=== PATIENT | female | born 1970 | race Asian ===

== ENCOUNTER 2021-10-09 03:43 | Emergency (ER) | payer BC ==
[2021-10-09] MEDS ORDERED: BENZONATATE 100 MG CAPSULE PO STA (04:06)
[2021-10-09 05:05] LABS: CORONAVIRUS 229E-RESP PCR NOT DETECTED; CORONAVIRUS HKU1-RESP PCR NOT DETECTED; CORONAVIRUS NL63-RESP PCR NOT DETECTED; CORONAVIRUS OC43-RESP PCR NOT DETECTED
[2021-10-09 05:06] LABS: B. PARAPERTUSSIS- RESP PCR PAN NOT DETECTED; B. PERTUSSIS- RESP PCR PANEL NOT DETECTED; C. PNEUMONIAE- RESP PCR PANEL NOT DETECTED; HUMAN METAPNEUMOVIRUS NOT DETECTED; INFLUENZA A- RESP PCR PANEL NOT DETECTED; INFLUENZA B - RESP PCR PANEL NOT DETECTED; M. PNEUMONIAE- RESP PCR PANEL NOT DETECTED; PARAINFLUENZA VIRUS 1 NOT DETECTED; PARAINFLUENZA VIRUS 2 NOT DETECTED; PARAINFLUENZA VIRUS 3 NOT DETECTED; PARAINFLUENZA VIRUS 4 NOT DETECTED; RHINOVIRUS/ENTEROVIRUS NOT DETECTED; RSV- RESP PCR PANEL NOT DETECTED; SARS-CoV-2 -RESP PCR PANEL DETECTED
[2021-10-09] MEDS ORDERED: AZITHROMYCIN 250 MG TABLET PO STA (05:19)
--- NOTE | 2021-10-09 06:13 | ED Physician Documentation ---
PD HPI URI - Stated complaint Stated Complaint: COUGH - Chief complaint Chief Complaint: Resp - History obtained from History obtained from: Patient - Additional information Additional information: Patient is 51-year-old female presenting with 4-day history of cough and generalized malaise. Denies chest pain or shortness of breath. Has not received flu shot or vaccination for the novel coronavirus. Does report one sick contact at home, reports son who is a school-aged had similar symptoms a few days ago but is now doing quite well. Denies any fever, chest pain, abdominal pain, nausea, vomiting, diarrhea, constipation. Review of Systems Ten Systems: 10 systems reviewed and negative Constitutional: reports: Myalgias. denies: Fever Cardiac: denies: Chest pain / pressure, Palpitations Respiratory: reports: Cough. denies: Dyspnea, Hemoptysis GI: denies: Abdominal Pain, Nausea, Vomiting : denies: Dysuria PD PAST MEDICAL HISTORY - Past Medical History Past Medical History: No Cardiovascular: None Respiratory: None Neuro: None Endocrine/Autoimmune: None GI: None MAMMOGRAPHY TECHNICIAN: None : None HEENT: None Psych: None Musculoskeletal: None Derm: None - Past Surgical History Past Surgical History: Yes /MAMMOGRAPHY TECHNICIAN: Tubal ligation - Present Medications Home Medications: Ambulatory Orders Medication Instructions Recorded Confirmed Azithromycin [Zithromax] 250 mg PO DAILY #4 tablet 10/09/21 Benzonatate [Tessalon] 200 mg PO TID PRN #30 cap 10/09/21 Codeine Phosphate/Guaifenesin 5 ml PO Q6HR #100 ml 10/09/21 [Guaifen-Codeine 100-10 mg/5 ml] - Allergies Allergies/Adverse Reactions: Allergies Allergy/AdvReac Type Severity Reaction Status Date / Time No Known Drug Allergies Allergy Verified 10/09/21 03:56 - Social History Does the pt smoke?: No Smoking Status: Never smoker Does the pt drink ETOH?: No Does the pt have substance abuse?: No - Immunizations Immunizations are current?: Yes - POLST Patient has POLST: No PD ED PE NORMAL - Vitals Vital signs reviewed: Yes - General General: Alert and oriented X 3 - HEENT HEENT: Atraumatic, Pharynx benign - Neck Neck: Supple, no meningeal sign, No JVD - Cardiac Cardiac: RRR, No murmur - Respiratory Respiratory: No respiratory distress - Abdomen Abdomen: Normal bowel sounds, Soft, Non tender, Non distended, Other (Positive for nonproductive cough) - Derm Derm: Normal color, No rash Results - Vitals Vitals: Vital Signs - 24 hr 10/09/21 10/09/21 10/09/21 03:53 04:11 04:18 Temperature 36.4 C L Heart Rate 98 Respiratory 17 16 15 Rate Blood Pressure 121/73 O2 Saturation 95 Oxygen O2 Source Room air - Labs Labs: Laboratory Tests 10/09/21 04:08 Nasal Adenovirus (PCR) NOT DETECTED Nasal B. parapertussis DNA (PCR) NOT DETECTED Nasal Coronavir 229E PCR NOT DETECTED Nasal Coronavir HKU1 PCR NOT DETECTED Nasal Coronavir NL63 PCR NOT DETECTED Nasal Coronavir OC43 PCR NOT DETECTED Nasal Enterovir/Rhinovir PCR NOT DETECTED Nasal Influenza B PCR NOT DETECTED Nasal Influenza A PCR NOT DETECTED Nasal Parainfluen 1 PCR NOT DETECTED Nasal Parainfluen 2 PCR NOT DETECTED Nasal Parainfluen 3 PCR NOT DETECTED Nasal Parainfluen 4 PCR NOT DETECTED Nasal RSV (PCR) NOT DETECTED Nasal B.pertussis DNA PCR NOT DETECTED Nasal C.pneumoniae (PCR) NOT DETECTED Jroden Human Metapneumo PCR NOT DETECTED Nasal M.pneumoniae (PCR) NOT DETECTED Nasal SARS-CoV-2 (PCR) DETECTED A - Rads (name of study) 0355 Radiology: Prelim report reviewed (Impression: Multifocal groundglass opacity distributed throughout the lung parenchyma. This finding can represent multi lobar viral pneumonia in the appropriate clinical setting) PD MEDICAL DECISION MAKING - ED course Complexity details: reviewed results, re-evaluated patient, considered differential, d/w patient, other (Discussed risks and benefits of monoclonal antibody therapy) ED course: Patient is 51-year-old female presenting to the emergency department for 4 days cough, general myalgias and other symptoms consistent with viral infection. Afebrile, hemodynamically stable on arrival to the emergency department. Respirating well on room air. Did obtain a respiratory viral panel which was positive for the novel coronavirus. Additionally patient's chest x-ray demonstrated bibasilar groundglass opacities consistent with Covid pneumonia. Patient was reevaluated multiple times and found to be resting comfortably and in no acute distress. She is given Tessalon and a first dose of azithromycin in the emergency department. I had a long and detailed conversation with the patient about the available monoclonal antibody therapy. She would be eligible for this given her BMI greater than 25 however she has minimal other risk factors. After discussing this therapy with her and providing her with the onsite information packet she elected to decline this therapy at this time. I will at this time discharge her with an ongoing course of azithromycin as well as medication for symptomatic management. I clearly outlined current CDC recommendations for quarantining at home and to the conditions at which point she can leave quarantine. She was otherwise strongly encouraged to follow-up carefully with primary care or return to the emergency department for new or worsening symptoms. Departure - Departure Disposition: Home, Self Care Clinical Impression: COVID-19 Condition: Fair Instructions: COVID-19 [facility], COVID-19 [facility] Department Statement Prescriptions: Codeine Phosphate/Guaifenesin [Guaifen-Codeine 100-10 mg/5 ml] 5 ml PO Q6HR #100 ml Benzonatate [Tessalon] 200 mg PO TID PRN #30 cap PRN Reason: Cough Azithromycin [Zithromax] 250 mg PO DAILY #4 tablet Comments: Thank you for allowing us to care for you today at [facility] Today in the emergency department you were diagnosed with the novel coronavirus. I would like you to begin a short course of an oral antibiotic. This medication is used to decrease your risk for a superimposed or worsening bacterial pneumonia. I will also be sending some medication to your local pharmacy to help with your cough and other symptoms. Please stay well-hydrated at home. Please complaining of rest. Please follow-up with your primary care doctor soon as you are able in order to make an appointment for medical recheck. It is important that you remain in quarantine a minimum of 10 days after the onset of your symptoms. If at that time all of your symptoms are improving and you have been fever free for greater than 24 hours you can resume appropriate socially distanced activity. If it anytime you develop any new or worsening symptoms including worsening shortness of breath, cough, chest pain, chest pressure or if for any other reason you feel you should please do not hesitate to return to the emergency department.
[2021-10-09 06:37] VITALS: BP 109/78
--- NOTE | 2021-10-09 07:23 | XRAY Report ---
PROCEDURE: Chest 1 View X-Ray INDICATIONS: chest pain TECHNIQUE: One view of the chest was acquired. COMPARISON: None. FINDINGS: Surgical changes and devices: None. Lungs and pleura: No pleural effusions or pneumothorax. Diffusely scattered patchy ground glass opac ities seen throughout the bilateral hemithoraces. Findings are slightly more pronounced in the lower lung zones. No focal consolidations. Mediastinum: Mediastinal contours appear normal. Heart size is normal. Bones and chest wall: No suspicious bony lesions. Overlying soft tissues appear unremarkable. IMPRESSION: Multifocal groundglass opacities scattered throughout the bilateral hemithoraces. Findings are most l ikely related to multifocal pneumonia secondary to viral or atypical organism. Recommend follow-up im aging 4-6 weeks after treatment to document resolution of findings. No significant discrepancy with initial interpretation by overnight radiologist. Reviewed by: Jose Rafael Prado MD on 10/09/2021 7:21 AM PST Approved by: Jose Rafael Prado MD on 10/09/2021 7:21 AM PST Station ID: [id number]
== END 2021-10-09 06:38 | disposition home or self-care (01) ==
LOC: ED 03:43
DX: U07.1 COVID-19 (principal); J12.82 Pneumonia due to coronavirus disease 2019
CPT/HCPCS: 0202U; 71045; 99284; A9270

== ENCOUNTER 2022-06-24 11:49 | Outpatient (CLI) | payer BC ==
[2022-06-24 17:41] LABS: BASOPHILS # (AUTO) 0.1 10^3/uL (0.0-0.1); BASOPHILS % (AUTO) 1.1 %; EOSINOPHILS # (AUTO) 0.4 10^3/uL (0.0-0.7); EOSINOPHILS % (AUTO) 4.2 %; HCT - HEMATOCRIT 42.3 % (37.0-47.0); HGB - HEMOGLOBIN 13.3 g/dL (12.0-16.0); LYMPHOCYTES # (AUTO) 2.3 10^3/uL (1.5-3.5); LYMPHOCYTES % (AUTO) 26.7 %; MEAN CORPUSCULAR HEMOGLOBIN 24.6 pg (27.0-31.0); MEAN CORPUSCULAR HGB CONC 31.4 g/dL (32.0-36.0); MEAN CORPUSCULAR VOLUME 78.2 fL (81.0-99.0); MEAN PLATELET VOLUME 8.4 fL (7.9-10.8); MONOCYTES # (AUTO) 0.4 10^3/uL (0.0-1.0); MONOCYTES % (AUTO) 5.1 %; NEUTROPHILS # (AUTO) 5.3 10^3/uL (1.5-6.6); NEUTROPHILS % (AUTO) 62.4 %; PLT - PLATELET COUNT 358 10^3/uL (130-450); RED BLOOD COUNT 5.41 10^6/uL (4.20-5.40); RED CELL DISTRIBUTION WIDTH 13.8 % (12.0-15.0); WHITE BLOOD COUNT 8.5 x10^3/uL (4.8-10.8)
[2022-06-24 17:56] LABS: ALBUMIN 3.9 g/dL (3.2-5.5); ALBUMIN/GLOBULIN RATIO 0.9 (1.0-2.2); ALKALINE PHOSPHATASE 109 IU/L (42-121); ALT ALANINE AMINOTRANSFERASE 18 IU/L (10-60); AST ASPARTATE AMINOTRANSFERASE 21 IU/L (10-42); BILIRUBIN,TOTAL 0.4 mg/dL (0.2-1.0); BUN - BLOOD UREA NITROGEN 11 mg/dL (6-20); CALCIUM 9.1 mg/dL (8.5-10.3); CARBON DIOXIDE - CO2 29 mmol/L (21-32); CHLORIDE 101 mmol/L (101-111); CHOL/HDL RATIO 3.1 (<4.4); CHOLESTEROL 149 mg/dL; CREATININE 0.9 mg/dL (0.4-1.0); GFR - MDRD 65 (>89); GLUCOSE 94 mg/dL (70-100); HDL CHOLESTEROL 48 mg/dL; LDL CHOLESTEROL,CALCULATED 79 mg/dL; LDL/HDL RATIO 1.6 (<4.4); POTASSIUM 4.1 mmol/L (3.5-5.0); SODIUM 136 mmol/L (135-145); TOTAL PROTEIN 8.1 g/dL (6.7-8.2); TRIGLYCERIDES 108 mg/dL; VLDL CHOLESTEROL 22 mg/dL
[2022-06-24 18:06] LABS: THYROID STIMULATING HORMONE 1.37 uIU/mL (0.34-5.60)
[2022-06-24 18:33] LABS: CRP - C-REACTIVE PROTEIN < 1.0 mg/dL (0-1.0)
[2022-06-24 20:49] LABS: ESTIMATED AVERAGE GLUCOSE 114 mg/dL (70-100); HEMOGLOBIN A1c% 5.6 % (4.27-6.07)
== END 2022-06-24 11:50 | disposition home or self-care (01) ==
LOC: LAB.N 11:49
PROVIDERS: ATTEND Nurse Practitioner
DX: L30.9 Dermatitis, unspecified (principal); Z13.220 Encounter for screening for lipoid disorders; E66.9 Obesity, unspecified; R53.83 Other fatigue
CPT/HCPCS: 36415; 80053; 80061; 83036; 83721; 84443; 85025; 85651; 86140

== ENCOUNTER 2025-10-12 02:13 | Inpatient (IN) ==
--- OUTSIDE RECORDS SUMMARY | 2025-10-12 02:37 | EXTERNAL MEDICAL SUMMARY RPT | Continuity of Care Document ---
Author Organization [facility] Address [address] [place] [id number] Phone Problems date description facility 2025-07-28 11:46 Right upper quadrant pain [facility] 2025-08-10 16:44 Epigastric pain [facility] 2025-08-10 16:44 Vomiting, unspecified [facility] 2025-08-10 16:52 Epigastric pain [facility] 2025-08-10 16:52 Vomiting, unspecified [facility] 2025-08-10 16:53 Epigastric pain [facility] 2025-08-10 16:53 Vomiting, unspecified [facility] 2025-08-10 16:54 Epigastric pain [facility] 2025-08-10 16:54 Vomiting, unspecified [facility] 2025-08-10 16:55 Epigastric pain [facility] 2025-08-10 16:55 Vomiting, unspecified [facility] 2025-09-20 00:05 Fatty (change of) liver, not el sewhere classified [facility] 2025-10-10 10:45 Epigastric pain [facility] 2025-10-10 10:45 Nausea [facility] 2025-10-10 11:02 Epigastric pain [facility] 2025-10-10 11:02 Nausea [facility] 2025-10-11 00:05 Epigastric pain [facility] 2025-10-11 00:05 Nausea [facility] 2025-10-11 07:37 Epigastric pain [facility] 2025-10-11 07:37 Nausea [facility] 2025-10-11 08:16 Epigastric pain [facility] 2025-10-11 08:16 Nausea [facility] Results/Labs test date facility value unit notes Result panel 1 HEPATITIS B CORE TOTAL AB 2025-09-19 12:18 [facility] Negative (missing) (missing) HEPATITIS BE ANTIGEN 2025-09-19 12:18 [facility] Negative (missing) (missing) HEPATITIS A IGM AB 2025-09-19 12:18 [facility] Negative (missing) A negative anti-HAV IgM result suggests no recent or current HAV infection. Performed at: [address] [id number] [employer] Reading Specialist: Macario Shaw MD, Phone: [phone] HEPATITIS C VIRUS AB 2025-09-19 12:18 [facility] Non Reactive (missing) HCV antibody alone does not differentiate between previously resolved infection and active infection. Equivocal and Reactive HCV antibody results should be followed up with an HCV RNA test to support the diagnosis of active HCV infection. HEPATITIS B SURFACE AB QUAL 2025-09-19 12:18 [facility] Non Reactive (missing) Non Reactive: Not immune to HBV infection. Anti-HBs undetectable or less than 10 mIU/mL. Reactive: Evidence of HBV immunity. Anti-HBs levels greater than 10 mIU/mL. Result panel 2 NUCLEATED RED BLOOD CELLS AUTO 2025-10-10 10:56 [facility] 0.0 /100wbc (missing) NRBC ABSOLUTE COUNT (AUTO) 2025-10-10 10:56 [facility] 0.00 x10 3/ul (missing) BASOPHILS # (AUTO) 2025-10-10 10:56 [facility] 0.1 10 3/ul (missing) EOSINOPHILS # (AUTO) 2025-10-10 10:56 [facility] 0.3 10 3/ul (missing) MONOCYTES # (AUTO) 2025-10-10 10:56 [facility] 0.4 10 3/ul (missing) BILIRUBIN,TOTAL 2025-10-10 10:56 [facility] 0.5 mg/dl As of May 2023 testing method has changed, this may include reference ranges. CREATININE 2025-10-10 10:56 [facility] 0.8 mg/dl As of May 2023 testing method has changed, this may include reference ranges. ALBUMIN/GLOBULIN RATIO 2025-10-10 10:56 [facility] 1.3 (missing) (missing) LYMPHOCYTES # (AUTO) 2025-10-10 10:56 [facility] 1.6 10 3/ul (missing) CHLORIDE 2025-10-10 10:56 [facility] 101 mmol/l As of May 2023 testing method has changed, this may include reference ranges. ALKALINE PHOSPHATASE 2025-10-10 10:56 [facility] 104 iu/l As of May 2023 testing method has changed, this may include reference ranges. HGB - HEMOGLOBIN 2025-10-10 10:56 [facility] 12.9 g/dl (missing) RED CELL DISTRIBUTION WIDTH 2025-10-10 10:56 [facility] 13.2 % (missing) SODIUM 2025-10-10 10:56 [facility] 138 mmol/l Unknown AST ASPARTATE AMINOTRANSFERASE 2025-10-10 10:56 [facility] 16 iu/l As of May 2023 testing method has changed, this may include reference ranges. MEAN CORPUSCULAR HEMOGLOBIN 2025-10-10 10:56 [facility] 23.8 pg (missing) CARBON DIOXIDE - CO2 2025-10-10 10:56 [facility] 29 mmol/l As of May 2023 testing method has changed, this may include reference ranges. GLOBULIN 2025-10-10 10:56 [facility] 3.2 g/dl (missing) MEAN CORPUSCULAR HGB CONC 2025-10-10 10:56 [facility] 30.4 g/dl (missing) PLT - PLATELET COUNT 2025-10-10 10:56 [facility] 342 10 3/ul (missing) POTASSIUM 2025-10-10 10:56 [facility] 4.2 mmol/l As of May 2023 testing method has changed, this may include reference ranges. ALBUMIN 2025-10-10 10:56 [facility] 4.3 g/dl As of May 2023 testing method has changed, this may include reference ranges. HCT - HEMATOCRIT 2025-10-10 10:56 [facility] 42.5 % (missing) LIPASE 2025-10-10 10:56 [facility] 46 u/l As of May 2023 testing method has changed, this may include reference ranges. RED BLOOD COUNT 2025-10-10 10:56 [facility] 5.43 10 6/ul (missing) NEUTROPHILS # (AUTO) 2025-10-10 10:56 [facility] 6.3 10 3/ul (missing) AMYLASE 2025-10-10 10:56 [facility] 66 u/l As of May 2023 testing method has changed, this may include reference ranges. ALT ALANINE AMINOTRANSFERASE 2025-10-10 10:56 [facility] 7 iu/l As of May 2023 testing method has changed, this may include reference ranges. TOTAL PROTEIN 2025-10-10 10:56 [facility] 7.5 g/dl As of May 2023 testing method has changed, this may include reference ranges. GFR - MDRD 2025-10-10 10:56 [facility] 74 (missing) The IDMS-traceable MDRD Study Equation has been validated extensively in and populations between the ages of 18 and 70 with impaired kidney function (eGFR < 60 mL/min/1.73m2) and has shown good performance for patients with all common causes of kidney disease. Although this equation has not been validated for patients older than 70, an MDRD-derived eGFR may still be a useful tool for providers caring for patients older than 70. References: http://www.nkdep. nih.gov/lab-evalu ation/gfr/creatin ine-stand ardization, last updated January 2012. MEAN CORPUSCULAR VOLUME 2025-10-10 10:56 [facility] 78.3 fl (missing) ANION GAP 2025-10-10 10:56 [facility] 8.0 (missing) (missing) WHITE BLOOD COUNT 2025-10-10 10:56 [facility] 8.7 x10 3/ul (missing) GLUCOSE 2025-10-10 10:56 [facility] 87 mg/dl As of May 2023 testing method has changed, this may include reference ranges. BUN - BLOOD UREA NITROGEN 2025-10-10 10:56 [facility] 9 mg/dl As of May 2023 testing method has changed, this may include reference ranges. MEAN PLATELET VOLUME 2025-10-10 10:56 [facility] 9.1 fl (missing) CALCIUM 2025-10-10 10:56 [facility] 9.4 mg/dl As of May 2023 testing method has changed, this may include reference ranges. Social History date description facility
[2025-10-12] MEDS: SODIUM CHLORIDE 0.9% 1,000 ML IV STA (03:03)
[2025-10-12] MEDS: ONDANSETRON 4 MG/2 ML VIAL IVP STA (03:03)
[2025-10-12 03:04] LABS: HCT - HEMATOCRIT 44.5 % (37.0-47.0); HGB - HEMOGLOBIN 14.4 g/dL (12.0-16.0); MEAN PLATELET VOLUME 8.1 fL (7.9-10.8); NRBC ABSOLUTE COUNT (AUTO) 0.00 x10^3/uL; NUCLEATED RED BLOOD CELLS AUTO 0.0 /100WBC; PLT - PLATELET COUNT 328 10^3/uL (130-450); RED CELL DISTRIBUTION WIDTH 12.9 % (12.0-15.0)
[2025-10-12 03:24] LABS: ALT ALANINE AMINOTRANSFERASE 7.0 IU/L (10-60); AST ASPARTATE AMINOTRANSFERASE 17.0 IU/L (10-42); BUN - BLOOD UREA NITROGEN 17.0 mg/dL (6-20); CARBON DIOXIDE - CO2 27.0 mmol/L (21-32); CREATININE 0.9 mg/dL (0.6-1.3); GFR - MDRD 65.0 (>89)
[2025-10-12] MEDS: SODIUM CHLORIDE 0.9% 500 ML IV ONE (04:14)
[2025-10-12 04:53] LABS: GLUCOSE, URINE (UA) NEGATIVE (NEGATIVE); KETONES,URINE (UA) >=80 mg/dL (NEGATIVE); OCCULT BLOOD,URINE NEGATIVE (NEGATIVE)
--- NOTE | 2025-10-12 05:53 | ED Physician Documentation ---
PD HPI ABD PAIN Stated complaint Stated Complaint: N/V Chief complaint Chief Complaint: Abd Pain History obtained from History obtained from: Patient Additional information Additional information: 55yF with pmh cholecystitis, no psh, p/w epigastric pain, n/v X 5 days with minimal po intake. denies diarrhea, fever, back pain, urinary sx Meds/Allgy Home Medications Ambulatory Orders Medication Instructions Recorded Confirmed No Known Home Medications 10/18/2409/30 Allergies Allergies Allergy/AdvReac Type Severity Reaction Status Date / Time oxycodone Allergy Intermediate Rash Verified 10/12/25 02:31 PFSH Active Problems All Active Problems (Updated 10/12/25 @ 05:52 by Sherry Gregory MD) Nausea & vomiting (Acute) Obstructed, gastric outlet (Acute) Metastatic cancer (Acute) Nausea (Acute) Abdominal pain (Acute) RUQ abdominal pain (Acute) Cholelithiasis (Acute) Porcelain gallbladder (Acute) Steatosis, liver (Acute) Fatigue (Acute) Ganglion cyst (Acute) Obesity (Acute) Esophageal thickening (Acute) Screening for lipid disorders (Acute) Medical History Medical History Cholecystitis with cholelithiasis Surgical History Surgical History History of bilateral tubal ligation laparoscopic Family History Family History Mother Depressed Father Heart attack Son Schizophrenia Brother Schizophrenia Maternal grandmother Migraine Social History Social History (Updated 10/10/25 @ 11:02 by LUCERO Rizvi, KENAN) Smoking Status: Unknown if ever smoked If you are a former smoker, when did you quit? (Date/Year): former social smoker Second hand tobacco smoke exposure: No Do you dip or chew tobacco?: No Do you vape?: No Living arrangement: At home Marital Status: Support Person: Yes Living Situation Details: Religious is her support. Lives with son who has a disability Physical Activity: None Level: Independent Do you feel safe in your home environment?: Yes History of physical, verbal, emotional, or financial abuse?: No ETOH Use: None Substance Use: denies use Occupation - Current: Technical Service - [employer] Retired: No Known occupational exposures/hazards (Current/Previous): repetitive motions, heat, chemical fume exposure, prolonged sitting Service: No Are you following a diet prescribed by a doctor: No Are you following a special diet: No Special Diet Details: No salt, no sugar, no oil due to abdominal pain. POLST Patient has POLST: No Exam Exam Vital Signs: Vital Signs x48h Temp Pulse Resp BP Pulse Ox 10/12/25 04:31 70 18 124/74 99 10/12/25 02:22 36.4 C L 80 18 120/87 96 Constitutional normal general appearance, no apparent distress and average body habitus HENMT normocephalic, head/scalp atraumatic and oropharynx normal Eyes PERRL and EOMs intact bilaterally Neck/C-Spine visual inspection normal Respiratory breath sounds equal bilaterally, normal respiratory effort and clear to auscultation bilaterally Cardiovascular normal heart rate noted and regular rhythm noted Gastrointestinal epigastrium ttp Results Vitals Vitals: Vital Signs - 24 hr 10/12/25 02:22 10/12/25 04:31 Temperature 36.4 C L Temperature Source Tympanic Pulse Rate 80 70 Respiratory Rate 18 18 Blood Pressure 120/87 124/74 O2 Saturation 96 99 O2 Source Room air Room air Pain Intensity 0 Oxygen O2 Source Room air Labs Labs: Laboratory Tests 10/12/25 10/12/25 02:58 04:30 WBC 12.0 H RBC 5.90 H Hgb 14.4 Hct 44.5 MCV 75.4 L MCH 24.4 L MCHC 32.4 RDW 12.9 Plt Count 328 MPV 8.1 Neut # (Auto) 9.4 H Lymph # (Auto) 2.0 Evangeline # (Auto) 0.5 Eos # (Auto) 0.1 Baso # (Auto) 0.1 Absolute Nucleated RBC 0.00 Nucleated RBC % 0.0 Sodium 138 Potassium 3.6 Chloride 92 L Carbon Dioxide 27 Anion Gap 19.0 H BUN 17 Creatinine 0.9 Estimated GFR (MDRD) 65 L Glucose 82 Calcium 9.8 Total Bilirubin 0.8 AST 17 ALT 7 L Alkaline Phosphatase 114 Total Protein 8.5 Albumin 4.9 Globulin 3.6 Albumin/Globulin Ratio 1.4 Lipase 41 Urine Color YELLOW Urine Clarity CLEAR Urine pH 6.0 Ur Specific [place] 1.030 Urine Protein TRACE Urine Glucose (UA) NEGATIVE Urine Ketones >=80 H Urine Occult Blood NEGATIVE Urine Nitrite NEGATIVE Urine Bilirubin NEGATIVE Urine Urobilinogen 0.2 (NORMAL) Ur Leukocyte Esterase NEGATIVE Ur Microscopic Review NOT INDICATED Urine Culture Comments NOT INDICATED PD Medical Decision Making ED course ED course: 55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 d/w Dr. Kuhn, surgeon stone chimney mason for admission to medicine with egd in the morning. will offer ng tube but given patient is feeling better with zofran, surgery states this may not be necessary if she is unable to tolerate. d/w telehealth for admission Discharge Plan Discharge Patient Disposition: [facility] DC/Xfer Condition: Fair Clinical Impression: Metastatic cancer, Obstructed, gastric outlet, Nausea & vomiting Prescriptions: No Action No Known Home Medications Print Language: Swedish
--- NOTE | 2025-10-12 06:22 | HISTORY & PHYSICAL EXAMINATION ---
Chief Complaint Chief Complaint Chief Complaint: nausea and vomiting History of Present Illness History Obtained From Records Reviewed: yes History obtained from: patient and ED physician Exam Limitations: telemedicine History of Present Illness HPI Comment/Other: Mrs. Caballero is a 55yoF with no significant PMH presented with 5 days of progressive nausea and vomiting. She explained that she had been experiencing increase satiety, loss of appetite for several weeks. This past week she started to have nausea which progressed to vomiting whenever she would eat something. She denied pain but did have epigastric burning and fullness. She had not had any fevers, any recent sick contacts. She has not been feeling well for the past month and has had 10lb unintentional weight loss during that time. Workup, CT abdomen and pelvis demonstrated enlarged stomach with material and air fluid levels, a proximal duodenal mass, with suspicious nodules in the lung. This visit was performed using tele-health tools, including phone and live- video. patient provided verbal consent to complete this telemedicine encounter. During the time my interview and evaluation, the patient was located at [facility] in the [facility], I was located in [place]. Review of Systems Status of ROS: 10 or more systems reviewed and unremarkable except as noted in history and below PFSH Active Problems All Active Problems (Updated 10/12/25 @ 06:33 by Phyllis Arenas MD) Leukocytosis (Acute) Nausea & vomiting (Acute) Obstructed, gastric outlet (Acute) Metastatic cancer (Acute) Nausea (Acute) Abdominal pain (Acute) RUQ abdominal pain (Acute) Cholelithiasis (Acute) Porcelain gallbladder (Acute) Steatosis, liver (Acute) Fatigue (Acute) Ganglion cyst (Acute) Obesity (Acute) Esophageal thickening (Acute) Screening for lipid disorders (Acute) Medical History Medical History Cholecystitis with cholelithiasis Surgical History Surgical History History of bilateral tubal ligation laparoscopic Family History Family History Mother Depressed Father Heart attack Son Schizophrenia Brother Schizophrenia Maternal grandmother Migraine Social History Social History (Updated 10/10/25 @ 11:02 by Rach L Ian, HOME ECONOMICS TEACHER, ENP) Smoking Status: Unknown if ever smoked If you are a former smoker, when did you quit? (Date/Year): former social smoker Second hand tobacco smoke exposure: No Do you dip or chew tobacco?: No Do you vape?: No Living arrangement: At home Marital Status: Support Person: Yes Living Situation Details: Faith is her support. Lives with son who has a disability Physical Activity: None Level: Independent Do you feel safe in your home environment?: Yes History of physical, verbal, emotional, or financial abuse?: No ETOH Use: None Substance Use: denies use Occupation - Current: Technical Service - [employer] Retired: No Known occupational exposures/hazards (Current/Previous): repetitive motions, heat, chemical fume exposure, prolonged sitting Service: No Are you following a diet prescribed by a doctor: No Are you following a special diet: No Special Diet Details: No salt, no sugar, no oil due to abdominal pain. POLST Patient has POLST: No Meds/Allgy Home Medications Ambulatory Orders Medication Instructions Recorded Confirmed No Known Home Medications 10/18/2409/30 Allergies Allergies Allergy/AdvReac Type Severity Reaction Status Date / Time oxycodone Allergy Intermediate Rash Verified 10/12/25 02:31 Exam Exam Vital Signs: Vital Signs x48h Temp Pulse Resp BP Pulse Ox 10/12/25 04:31 70 18 124/74 99 10/12/25 02:22 36.4 C L 80 18 120/87 96 Constitutional normal general appearance and no apparent distress Cardiovascular normal heart rate noted and regular rhythm noted Gastrointestinal tender to palpation, distended and abnormal bowel sounds noted Extremities normal to inspection Neurology no movement abnormality noted, no focal motor deficit noted and no sensory deficits noted Psychiatry oriented x3 Skin skin color normal, no rash and no jaundice Conclusion/Plan Problem List (1) Obstructed, gastric outlet: Plan: CT abdomen and pelvis reviewed. obstructive duodenal mass, suspicious for metastatic disease -surgery consulted, Dr. Kuhn assist with further management and possible mass biopsy -will maintain NPO, consider advancement of diet as tolerated after surgical evaluation -Zofran 4mg IV prn for nausea, NGT with intermittent suction for gastric decompression as tolerated -IV fluids -monitor I&Os (2) Leukocytosis: Plan: likely reactive. No findings of acute infection, continue to monitor. -defer antibiotics at this time. Plan Patient will be admitted to the hospitalist service under inpatient status. greater than 2 midnights expected for management.patient unable to tolerate appropriate oral intake. Lab Results 10/12/25 02:58 10/12/25 02:58 Core Measures Anticipated LOS I expect patient to be DC'd or transferred within 96 hours.: Yes DVT/VTE - Prophylaxis VTE/DVT Device ordered at admit?: Yes Telemedicine Consult Details Provider Location & Consult Time Telemedicine consultation conducted via videoconferencing?: Yes
--- OUTSIDE RECORDS SUMMARY | 2025-10-12 06:41 | EXTERNAL MEDICAL SUMMARY RPT | Continuity of Care Document ---
Author Organization [facility] Address [address] [place] [id number] Phone Problems date description facility 2025-07-28 11:46 Right upper quadrant pain [facility] 2025-08-10 16:44 Epigastric pain [facility] 2025-08-10 16:44 [facility]omiting, unspecified [facility] 2025-08-10 16:52 Epigastric [facility] 2025-08-10 16:52 V[facility]iting, unspecified [facility] 2025-08-10 16:53 Epigastric pain [facility] 2025-08-10 16:53 Vomiting, unspecified [facility] 2025-08-10 16:54 Epigastric pain [facility] 2025-08-10 16:54 Vomiting[facility] unspecified [facility] 2025-08-10 16:55 Epigastric pain [facility] 2025-08-10 16:55 Vomiting, unspecified [facility] 2025-09-20 00:05 Fatty (change of) liver, not el sewhere classified [facility] 2025-10-10 10:45 Epigastric pain [facility] 2025-10-10 10:45 Nausea [facility] 2025-10-10 11:02 Epigastric pain [facility] 2025-10-10 11:02 Nausea [facility] 2025-10-11 00:05 Epigastric pain [facility] 2025-10-11 00:05 Nausea [facility] 2025-10-11 07:37 Epigastric pain [facility] 2025-10-11 07:37 Nausea [facility] 2025-10-11 08:16 Epigastric pain [facility] 2025-10-11 08:16 Nausea [facility] 2025-10-12 02:31 Epigastric pain [facility] 2025-10-12 02:31 Nausea [facility] Results/Labs test date facility value unit notes Result panel 1 HEPATITIS B CORE TOTAL AB 2025-09-19 12:18 [employer] Negative (missing) (missing) HEPATITIS BE ANTIGEN 2025-09-19 12:18 [employer] Negative (missing) (missing) HEPATITIS A IGM AB 2025-09-19 12:18 [employer] Negative (missing) A negative anti-HAV IgM result suggests no recent or current HAV infection. Performed at: - [facility] [address], [place], [place] [id number] Shake Out Worker: Macario Shaw MD, Phone: [phone] HEPATITIS C VIRUS AB 2025-09-19 12:18 [employer] Non Reactive (missing) HCV antibody alone does not differentiate between previously resolved infection and active infection. Equivocal and Reactive HCV antibody results should be followed up with an HCV RNA test to support the diagnosis of active HCV infection. HEPATITIS B SURFACE AB QUAL 2025-09-19 12:18 [employer] Non Reactive (missing) Non Reactive: Not immune to HBV infection. Anti-HBs undetectable or less than 10 mIU/mL. Reactive: Evidence of HBV immunity. Anti-HBs levels greater than 10 mIU/mL. Result panel 2 NUCLEATED RED BLOOD CELLS AUTO 2025-10-10 10:56 [employer] 0.0 /100wbc (missing) NRBC ABSOLUTE COUNT (AUTO) 2025-10-10 10:56 [employer] 0.00 x10 3/ul (missing) BASOPHILS # (AUTO) 2025-10-10 10:56 [employer] 0.1 10 3/ul (missing) EOSINOPHILS # (AUTO) 2025-10-10 10:56 [employer] 0.3 10 3/ul (missing) MONOCYTES # (AUTO) 2025-10-10 10:56 [employer] 0.4 10 3/ul (missing) BILIRUBIN,TOTAL 2025-10-10 10:56 [employer] 0.5 mg/dl As of May 2023 testing method has changed, this may include reference ranges. CREATININE 2025-10-10 10:56 [employer] 0.8 mg/dl As of May 2023 testing method has changed, this may include reference ranges. ALBUMIN/GLOBULIN RATIO 2025-10-10 10:56 [employer] 1.3 (missing) (missing) LYMPHOCYTES # (AUTO) 2025-10-10 10:56 [employer] 1.6 10 3/ul (missing) CHLORIDE 2025-10-10 10:56 [employer] 101 mmol/l As of May 2023 testing method has changed, this may include reference ranges. ALKALINE PHOSPHATASE 2025-10-10 10:56 [employer] 104 iu/l As of May 2023 testing method has changed, this may include reference ranges. HGB - HEMOGLOBIN 2025-10-10 10:56 [employer] 12.9 g/dl (missing) RED CELL DISTRIBUTION WIDTH 2025-10-10 10:56 [employer] 13.2 % (missing) SODIUM 2025-10-10 10:56 [employer] 138 mmol/l Unknown AST ASPARTATE AMINOTRANSFERASE 2025-10-10 10:56 [employer] 16 iu/l As of May 2023 testing method has changed, this may include reference ranges. MEAN CORPUSCULAR HEMOGLOBIN 2025-10-10 10:56 [employer] 23.8 pg (missing) CARBON DIOXIDE - CO2 2025-10-10 10:56 [employer] 29 mmol/l As of May 2023 testing method has changed, this may include reference ranges. GLOBULIN 2025-10-10 10:56 [employer] 3.2 g/dl (missing) MEAN CORPUSCULAR HGB CONC 2025-10-10 10:56 [employer] 30.4 g/dl (missing) PLT - PLATELET COUNT 2025-10-10 10:56 [employer] 342 10 3/ul (missing) POTASSIUM 2025-10-10 10:56 [employer] 4.2 mmol/l As of May 2023 testing method has changed, this may include reference ranges. ALBUMIN 2025-10-10 10:56 [employer] 4.3 g/dl As of May 2023 testing method has changed, this may include reference ranges. HCT - HEMATOCRIT 2025-10-10 10:56 [employer] 42.5 % (missing) LIPASE 2025-10-10 10:56 [employer] 46 u/l As of May 2023 testing method has changed, this may include reference ranges. RED BLOOD COUNT 2025-10-10 10:56 [employer] 5.43 10 6/ul (missing) NEUTROPHILS # (AUTO) 2025-10-10 10:56 [employer] 6.3 10 3/ul (missing) AMYLASE 2025-10-10 10:56 [employer] 66 u/l As of May 2023 testing method has changed, this may include reference ranges. ALT ALANINE AMINOTRANSFERASE 2025-10-10 10:56 [employer] 7 iu/l As of May 2023 testing method has changed, this may include reference ranges. TOTAL PROTEIN 2025-10-10 10:56 [employer] 7.5 g/dl As of May 2023 testing method has changed, this may include reference ranges. GFR - MDRD 2025-10-10 10:56 [employer] 74 (missing) The IDMS-traceable MDRD Study Equation [...] January 2012. MEAN CORPUSCULAR VOLUME 2025-10-10 10:56 [employer] 78.3 fl (missing) ANION GAP 2025-10-10 10:56 [employer] 8.0 (missing) (missing) WHITE BLOOD COUNT 2025-10-10 10:56 [employer] 8.7 x10 3/ul (missing) GLUCOSE 2025-10-10 10:56 [employer] 87 mg/dl As of May 2023 testing method has changed, this may include reference ranges. BUN - BLOOD UREA NITROGEN 2025-10-10 10:56 [employer] 9 mg/dl As of May 2023 testing method has changed, this may include reference ranges. MEAN PLATELET VOLUME 2025-10-10 10:56 [facility] 9.1 fl (missing) CALCIUM 2025-10-10 10:56 [facility] 9.4 mg/dl As of May 2023 testing method has changed, this may include reference ranges. Result panel 3 NUCLEATED RED BLOOD CELLS AUTO 2025-10-12 02:58 [facility] 0.0 /100wbc (missing) NRBC ABSOLUTE COUNT (AUTO) 2025-10-12 02:58 [facility] 0.00 x10 3/ul (missing) BASOPHILS # (AUTO) 2025-10-12 02:58 [facility] 0.1 10 3/ul (missing) EOSINOPHILS # (AUTO) 2025-10-12 02:58 [facility] 0.1 10 3/ul (missing) MONOCYTES # (AUTO) 2025-10-12 02:58 [facility] 0.5 10 3/ul (missing) BILIRUBIN,TOTAL 2025-10-12 02:58 [facility] 0.8 mg/dl As of May 2023 testing method has changed, this may include reference ranges. CREATININE 2025-10-12 02:58 [facility] 0.9 mg/dl As of May 2023 testing method has changed, this may include reference ranges. ALBUMIN/GLOBULIN RATIO 2025-10-12 02:58 [facility] 1.4 (missing) (missing) ALKALINE PHOSPHATASE 2025-10-12 02:58 [facility] 114 iu/l As of May 2023 testing method has changed, this may include reference ranges. WHITE BLOOD COUNT 2025-10-12 02:58 [facility] 12.0 x10 3/ul (missing) RED CELL DISTRIBUTION WIDTH 2025-10-12 02:58 [facility] 12.9 % (missing) SODIUM 2025-10-12 02:58 [facility] 138 mmol/l (missing) HGB - HEMOGLOBIN 2025-10-12 02:58 [facility] 14.4 g/dl (missing) AST ASPARTATE AMINOTRANSFERASE 2025-10-12 02:58 [facility] 17 iu/l As of May 2023 testing method has changed, this may include reference ranges. BUN - BLOOD UREA NITROGEN 2025-10-12 02:58 [employer] 17 mg/dl As of May 2023 testing method has changed, this may include reference ranges. ANION GAP 2025-10-12 02:58 [employer] 19.0 (missing) (missing) LYMPHOCYTES # (AUTO) 2025-10-12 02:58 [employer] 2.0 10 3/ul (missing) MEAN CORPUSCULAR HEMOGLOBIN 2025-10-12 02:58 [employer] 24.4 pg (missing) CARBON DIOXIDE - CO2 2025-10-12 02:58 [employer] 27 mmol/l As of May 2023 testing method has changed, this may include reference ranges. GLOBULIN 2025-10-12 02:58 [employer] 3.6 g/dl (missing) POTASSIUM 2025-10-12 02:58 [employer] 3.6 mmol/l As of May 2023 testing method has changed, this may include reference ranges. MEAN CORPUSCULAR HGB CONC 2025-10-12 02:58 [employer] 32.4 g/dl (missing) PLT - PLATELET COUNT 2025-10-12 02:58 [employer] 328 10 3/ul (missing) ALBUMIN 2025-10-12 02:58 [employer] 4.9 g/dl As of May 2023 testing method has changed, this may include reference ranges. LIPASE 2025-10-12 02:58 [employer] 41 u/l As of May 2023 testing method has changed, this may include reference ranges. HCT - HEMATOCRIT 2025-10-12 02:58 [employer] 44.5 % (missing) RED BLOOD COUNT 2025-10-12 02:58 [employer] 5.90 10 6/ul (missing) GFR - MDRD 2025-10-12 02:58 [employer] 65 (missing) The IDMS-traceable MDRD Study Equation has [...] ation/gfr/creatin ine-stand ardization, last updated January 2012. ALT ALANINE AMINOTRANSFERASE 2025-10-12 02:58 [facility] 7 iu/l As of May 2023 testing method has changed, this may include reference ranges. MEAN CORPUSCULAR VOLUME 2025-10-12 02:58 [facility] 75.4 fl (missing) MEAN PLATELET VOLUME 2025-10-12 02:58 [facility] 8.1 fl (missing) TOTAL PROTEIN 2025-10-12 02:58 [facility] 8.5 g/dl As of May 2023 testing method has changed, this may include reference ranges. GLUCOSE 2025-10-12 02:58 [facility] 82 mg/dl As of May 2023 testing method has changed, this may include reference ranges. NEUTROPHILS # (AUTO) 2025-10-12 02:58 [facility] 9.4 10 3/ul (missing) CALCIUM 2025-10-12 02:58 [facility] 9.8 mg/dl As of May 2023 testing method has changed, this may include reference ranges. CHLORIDE 2025-10-12 02:58 [facility] 92 mmol/l As of May 2023 testing method has changed, this may include reference ranges. Result panel 4 KETONES,URINE (UA) 2025-10-12 04:30 [facility] >=80 mg/dl (missing) UROBILINOGEN,URINE 2025-10-12 04:30 [facility] 0.2 (NORMAL) e.u./dl (missing) SPECIFIC GRAVITY,URINE 2025-10-12 04:30 [facility] 1.030 (missing) (missing) PH,URINE 2025-10-12 04:30 [facility] 6.0 ph (missing) CLARITY,URINE 2025-10-12 04:30 [facility] CLEAR (missing) (missing) LEUKOCYTE ESTERASE, URINE 2025-10-12 04:30 [facility] NEGATIVE (missing) (missing) NITRITE,URINE 2025-10-12 04:30 [facility] NEGATIVE (missing) (missing) OCCULT BLOOD,URINE 2025-10-12 04:30 [facility] NEGATIVE (missing) (missing) BILIRUBIN,URINE 2025-10-12 04:30 [facility] NEGATIVE (missing) Bilirubin can be influenced by color interference. Please correlate positive results with clinical presentation GLUCOSE, URINE (UA) 2025-10-12 04:30 [facility] NEGATIVE mg/dl (missing) UR CULTURE IF IND 2025-10-12 04:30 [facility] NOT INDICATED (missing) (missing) URINE MICROSCOPIC INDICATED? 2025-10-12 04:30 [facility] NOT INDICATED (missing) (missing) PROTEIN,URINE 2025-10-12 04:30 [facility] TRACE mg/dl (missing) COLOR,URINE 2025-10-12 04:30 [facility] YELLOW (missing) URINE CLEAN CATCH Social History date description facility
[2025-10-12] MEDS ORDERED: ACETAMINOPHEN 1,000 MG/100 ML 1,000 MG/100 ML BAG IV PRN (06:57)
[2025-10-12] MEDS ORDERED: KETOROLAC 15 MG/ML VIAL IVP PRN (06:57)
[2025-10-12] MEDS: SODIUM CHLORIDE 0.9% 1,000 ML IV SCH (07:17)
--- NOTE | 2025-10-12 09:08 | CT Report ---
PROCEDURE: CT Abdomen/Pelvis W INDICATIONS: abd pain X 5 days CONTRAST: OMNI 300 100ml TECHNIQUE: After the administration of intravenous contrast, a CT scan of the abdomen and pelvis was performed. Images were recorded and evaluated at appropriate window settings. Reformats: coronal and sagittal. For radiation dose reduction, the following was used: automated exposure control, adjustment of mA and/or kV according to patient size. COMPARISON: 10/14/2024 FINDINGS: Image quality: Diagnostic Lower chest: Left lower lung atelectasis or scarring. Lingular and middle lobe atelectasis or scarring also seen. Liver: Unremarkable Gallbladder and biliary system: Gallbladder wall calcifications and cholelithiasis. No biliary ductal dilation Pancreas: No ductal dilation Spleen: Nonenlarged Adrenals: No discrete nodules Kidneys: No solid renal mass or hydronephrosis. Vessels and lymph nodes: Main portal vein is patent. No abdominal aortic aneurysm. No retroperitoneal by size criteria. Bowel and peritoneum: Marked wall thickening of the gastric outlet, with extensive marrow edema and fluid. Distended stomach. Enlarged perigastric lymph nodes are present. No drainable ascites. Trace pelvic free fluid is present. No abscess. Nondilated appendix Body wall: Unremarkable Pelvis: Under distended urinary bladder. Distended endometrium with heterogeneous enhancement. Bones: There are degenerative osseous changes. No aggressive appearing osseous abnormality. IMPRESSION: Marked wall thickening of the gastric outlet, with extensive mural edema and fluid. Distended stomach. Enlarged perigastric lymph nodes and possible implants are present. Differential includes severe gastritis and malignancy. Endoscopy is recommended. Gallbladder wall calcifications and cholelithiasis. Distended endometrium with heterogeneous enhancement. Given patient's presumed postmenopausal age, suggest ultrasound. Other findings above. No significant changes from the preliminary report. Reviewed by: Kp Alvarado MD on 10/12/2025 9:05 AM [facility] Approved by: Kp Alvarado MD on 10/12/2025 9:05 AM [facility] Station ID: [id number]
[2025-10-12] MEDS: SODIUM CHLORIDE FLUSH 0.9% 10 ML SYRINGE IVP SCH (09:50)
[2025-10-12] MEDS: HEPARIN 5,000 UNIT/ML VIAL SUBQ SCH (09:50)
[2025-10-12] MEDS: PANTOPRAZOLE 40 MG VIAL IV SCH (11:57)
--- NOTE | 2025-10-12 12:49 | XRAY Report ---
PROCEDURE: XR Chest for Line Placement INDICATIONS: NGT placed TECHNIQUE: One view of the chest was acquired. COMPARISON: None FINDINGS: FINDINGS: Surgical changes and devices: A nasogastric tube extends at least into the stomach. Numerous EKG leads overlie the chest. Lungs and pleura: There is linear parenchymal stranding in the periphery of the left mid lung zone, compatible with atelectasis or scarring. No pleural effusions or pneumothorax. Mediastinum: Mediastinal contours appear normal. Heart size is normal. Bones and chest wall: No suspicious bony lesions. Overlying soft tissues appear unremarkable. IMPRESSION: Linear atelectasis versus scarring in the periphery of the left midlung zone. Nasogastric tube terminates at least in the stomach. Reviewed by: Tino Brown MD on 10/12/2025 12:45 PM PST Approved by: Tino Brown MD on 10/12/2025 12:45 PM [facility] Station ID: [id number]
--- NOTE | 2025-10-12 13:13 | CONSULTATION NOTE ---
History of Present Illness History of Present Illness HPI Comment/Other: 55yoF admitted early this AM to the hospitalist service with PO intolerance and CT evidence of gastric outlet obstruction. This patient was seen by me in clinic last year () for epigastric pain. From my A/P: "54yoF with crescendo episodes of biliary colic. 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 Also with history of heartburn and nonspecifc foregut wall thickening on imaging - recommend further evaluation with EGD." She did not end up booking surgery and did not return to or call the surgical clinic. She was then seen by her PCP in for recurrent abdominal pain. From PCP's A/P: "RUQ pain, had previously been seen for abdominal pain. At the time chemistry panel showed elevated liver enzymes, imaging showed esophageal thickening as well as porcelain gallbladder and cholelithiasis. She had been referred to surgery, saw Dr. Kuhn. They had planned surgical intervention, however, Laurel never followed through. She has a son with schizophrenia, does not wish to leave him on his own, quite hesitant for surgical intervention as well. I had also placed orders for hepatitis panel as well, never followed through obtaining those labs, cost may be an issue. States that pain has improved greatly from September, has some intermittent pain if she eats a fatty meal. No radiation to right shoulder blade. Plan: Have reordered labs, would like her to follow through to get labs done. Discussed placing new referral for general surgery, still wanting to hold off on this." There are no further clinical encounters until her presentation for admission yesterday. She now describes increasing abdominal pain over the last month or so, with associated decrease in appetite. For the last 1-1.5 weeks, she has been minimally tolerant of PO: she will eat a few bites of fruit, followed by emesis. She has tried to get a few bites of food a day, and take small sips of water, but has had minimal PO intake for about a week. She notes her BMs have been occurring about every 3 days, and low volume. She is a former smoker (quit 2007) and takes no regular home medications (Rx or OTC). In the last two weeks she took Pepto once and charcoal once for her symptoms. 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 [facility] Active Problems All Active Problems (Updated 10/12/25 @ 13:18 by Aaliyah Kuhn DO) Leukocytosis (Acute) Nausea & vomiting (Acute) Obstructed, gastric outlet (Acute) Abdominal pain (Acute) Cholelithiasis (Acute) Porcelain gallbladder (Acute) Obesity (Acute) Steatosis, liver (Acute) Fatigue (Acute) Medical History Medical History (Updated 10/12/25 @ 13:18 by Aaliyah Kuhn DO) Ganglion cyst left wrist Esophageal thickening Distal esophagus Cholecystitis with cholelithiasis Surgical History Surgical History History of bilateral tubal ligation laparoscopic Family History Family History Mother Depressed Father Heart attack Son Schizophrenia Brother Schizophrenia Maternal grandmother Migraine Social History Social History (Updated 10/12/25 @ 08:34 by Aaliyah Kuhn DO) Smoking Status: Former smoker If you are a former smoker, when did you quit? (Date/Year): 2007 Second hand tobacco smoke exposure: No Do you dip or chew tobacco?: No Do you vape?: No Living arrangement: At home Marital Status: Support Person: Yes Living Situation Details: Buddhist is her support. Lives with son who has a disability Physical Activity: None Level: Independent Do you feel safe in your home environment?: Yes History of physical, verbal, emotional, or financial abuse?: No ETOH Use: None Substance Use: denies use Occupation - Current: Technical Service - [employer] Retired: No Known occupational exposures/hazards (Current/Previous): repetitive motions, heat, chemical fume exposure, prolonged sitting Service: No Are you following a diet prescribed by a doctor: No Are you following a special diet: No Special Diet Details: No salt, no sugar, no oil due to abdominal pain. POLST Patient has POLST: No Meds/Allgy Home Medications Ambulatory Orders Medication Instructions Recorded Confirmed No Known Home Medications 10/18/2409/30 Allergies Allergies Allergy/AdvReac Type Severity Reaction Status Date / Time oxycodone Allergy Intermediate Rash Verified 10/12/25 02:31 Results Lab Results 10/12/25 02:58 10/12/25 02:58 Other Lab Results: Lab Results x24hrs 10/12/25 10/12/25 Range/Units 04:30 02:58 WBC 12.0 H (4.8-10.8) x10^3/uL RBC 5.90 H (4.20-5.40) 10^6/uL Hgb 14.4 (12.0-16.0) g/dL Hct 44.5 (37.0-47.0) % MCV 75.4 L (81.0-99.0) fL MCH 24.4 L (27.0-31.0) pg MCHC 32.4 (32.0-36.0) g/dL RDW 12.9 (12.0-15.0) % Plt Count 328 (130-450) 10^3/uL MPV 8.1 (7.9-10.8) fL Neut # (Auto) 9.4 H (1.5-6.6) 10^3/uL Lymph # (Auto) 2.0 (1.5-3.5) 10^3/uL Haralson # (Auto) 0.5 (0.0-1.0) 10^3/uL Eos # (Auto) 0.1 (0.0-0.7) 10^3/uL Baso # (Auto) 0.1 (0.0-0.1) 10^3/uL Absolute Nucleated RBC 0.00 x10^3/uL Nucleated RBC % 0.0 /100WBC Sodium 138 (135-145) mmol/L Potassium 3.6 (3.5-4.5) mmol/L Chloride 92 L (101-111) mmol/L Carbon Dioxide 27 (21-32) mmol/L Anion Gap 19.0 H (6-13) BUN 17 (6-20) mg/dL Creatinine 0.9 (0.6-1.3) mg/dL Estimated GFR (MDRD) 65 L (>89) Glucose 82 (74-104) mg/dL Calcium 9.8 (8.5-10.3) mg/dL Total Bilirubin 0.8 (0.2-1.0) mg/dL AST 17 (10-42) IU/L ALT 7 L (10-60) IU/L Alkaline Phosphatase 114 (42-121) IU/L Total Protein 8.5 (6.4-8.9) g/dL Albumin 4.9 (3.2-5.5) g/dL Globulin 3.6 (2.1-4.2) g/dL Albumin/Globulin Ratio 1.4 (1.0-2.2) Lipase 41 (11-82) U/L Urine Color YELLOW Urine Clarity CLEAR (CLEAR) Urine pH 6.0 (5.0-7.5) PH Ur Specific Schuyler 1.030 (1.002-1.030) Urine Protein TRACE (NEGATIVE) mg/dL Urine Glucose (UA) NEGATIVE (NEGATIVE) mg/dL Urine Ketones >=80 H (NEGATIVE) mg/dL Urine Occult Blood NEGATIVE (NEGATIVE) Urine Nitrite NEGATIVE (NEGATIVE) Urine Bilirubin NEGATIVE (NEGATIVE) Urine Urobilinogen 0.2 (NORMAL) (NORMAL) E.U./dL Ur Leukocyte Esterase NEGATIVE (NEGATIVE) Ur Microscopic Review NOT INDICATED Urine Culture Comments NOT INDICATED Diagnostic Imaging Results Diagnostic Imaging Results: positive Read contemporaneously Diagnostic Imaging Results Comments: 10/12/2025 PROCEDURE: CT Abdomen/Pelvis W/ INDICATIONS: abd pain X 5 days CONTRAST: OMNI 300 100ml TECHNIQUE: After the administration of intravenous contrast, a CT scan of the abdomen and pelvis was performed. Images were recorded and evaluated at appropriate window settings. Reformats: coronal and sagittal. For radiation dose reduction, the following was used: automated exposure control, adjustment of mA and/or kV according to patient size. COMPARISON: 10/14/2024 FINDINGS: Image quality: Diagnostic Lower chest: Left lower lung atelectasis or scarring. Lingular and middle lobe atelectasis or scarring also seen. Liver: Unremarkable Gallbladder and biliary system: Gallbladder wall calcifications and cholelithiasis. No biliary ductal dilation Pancreas: No ductal dilation Spleen: Nonenlarged Adrenals: No discrete nodules Kidneys: No solid renal mass or hydronephrosis. Vessels and lymph nodes: Main portal vein is patent. No abdominal aortic aneurysm. No retroperitoneal by size criteria. Bowel and peritoneum: Marked wall thickening of the gastric outlet, with extensive marrow edema and fluid. Distended stomach. Enlarged perigastric lymph nodes are present. No drainable ascites. Trace pelvic free fluid is present. No abscess. Nondilated appendix Body wall: Unremarkable Pelvis: Under distended urinary bladder. Distended endometrium with heterogeneous enhancement. Bones: There are degenerative osseous changes. No aggressive appearing osseous abnormality. IMPRESSION: Marked wall thickening of the gastric outlet, with extensive mural edema and fluid. Distended stomach. Enlarged perigastric lymph nodes and possible implants are present. Differential includes severe gastritis and malignancy. Endoscopy is recommended. Gallbladder wall calcifications and cholelithiasis. Distended endometrium with heterogeneous enhancement. Given patient's presumed postmenopausal age, suggest ultrasound. Other findings above. No significant changes from the preliminary report. Reviewed by: Kp Alvarado MD on 10/12/2025 9:05 AM PST Approved by: Kp Alvarado MD on 10/12/2025 9:05 AM PST Review of Systems Status of ROS: 10 or more systems reviewed and unremarkable except as noted in history and below Exam Exam Vital Signs: Vital Signs x48h Temp Pulse Pulse Pulse Resp BP BP 10/12/25 11:45 36.5 C 70 16 112/69 10/12/25 08:05 36.6 C 63 16 134/77 H 10/12/25 06:41 36.4 C L 63 18 143/78 H 10/12/25 06:38 37 C 88 17 115/80 Pulse Ox 10/12/25 11:45 97 10/12/25 08:05 99 10/12/25 06:41 98 10/12/25 06:38 98 Constitutional normal general appearance and no apparent distress [facility] normocephalic Neck/C-Spine visual inspection normal Respiratory normal respiratory effort and clear to auscultation bilaterally Cardiovascular normal heart rate noted and regular rhythm noted Gastrointestinal abdomen soft to palpation, nondistended and mass noted In the RUQ, there is a firm abdominal mass (not a soft tissue abdominal wall mass) palpable in location that corresponds with pylorus/area of concern on CT. It is mildly tender, with no overlying skin changes. Impression of size by palpation (indistinct by palpation through abdominal wall) is about that of an orange. No LUQ ttp. no rebound/peritoneal signs/negative murpheys. Extremities normal to inspection Neurology no movement abnormality noted and GCS 15 Psychiatry mental status grossly normal and oriented x3 Skin skin color normal Conclusion/Plan Problem List (1) Obstructed, gastric outlet: Plan: 55yoF admitted 10/12/2025 with gastric outlet obstruction, preceeded by 1.5 weeks of [id number] PO intake with vomiting. She is HD stable with a mild leukocytosis, and electrolyte derangements/urine ketones consistent with starvation ketoacidosis and hypovolemia. CT imaging (IV contrast only) shows dramatic circumferential thickening of the prepyloric stomach through the proximal-mid duodenum, as well as enlarged perigastric lymph nodes. Stomach is markedly distended and full. Of note, the patient had CT finding of mild- nonspecific thickening of foregut wall ([id number]) one year ago when evaluated for abdominal pain. DDX: Clinical and radiographic picture concerning for gastric malignancy vs severe gastritis. No lab or radiographic evidence of biliary or pancreatic dilation, and pancreatic parenchyma looks normal on imaging thus far, but pancreatic head cancer can present with similar circumferential thickening of the gastric outlet/duodenum, and thus is on the differential. Discovered after admission and after my interview with patient: she had a recent immigration physical with a + quantiferon gold but normal CXR suggesting latent TB. Rare dx on differential could include abdominal/extrapulmonary TB. [facility] who agrees with patient staying at [facility] for the following initial workup/plan, (and agrees to discuss further once more information is know regarding her diagnosis): - Patient admitted to hospitalist service, receiving rehydration, BID protonix started, Nutrition following - Recommend gastric decompression with NGT to LIWS (already placed and in good position on CXR) - after 24hrs decompression, plan for EGD in OR tomorrow for visual characterization and biopsy (histology and h pylori) of the gastric outlet obstruction, as well as attempted placement of Dobhoff tube for temporary tube feeding access - Further plans pending endoscopic findings but include if findings further suggestive of malignancy: --- staging imaging - CT chest/abd/pel with IV and ORAL contrast --- PET-CT --- tumor markers - Further plans regarding feeding access (+/- surgical feeding tube) pending more clear diagnosis and overall treatment plan Aaliyah Kuhn DO, FACS General Surgeon, [facility] Lab Results 10/12/25 02:58 10/12/25 02:58 Diagnostic Imaging Results Diagnostic Imaging Results: positive Read contemporaneously
[2025-10-12] MEDS: DEXTROSE 5%-0.9% NACL 1,000 ML IV SCH (14:33)
[2025-10-12 14:36] LABS: INR 1.2 (0.8-1.2); PT - PROTHROMBIN TIME 13.4 secs (9.9-12.6)
[2025-10-12] MEDS: PHENOL THROAT SPRAY 177 ML MM PRN (14:36)
[2025-10-12 15:20] LABS: CRP - C-REACTIVE PROTEIN 0.6 mg/dL (<0.5)
--- NOTE | 2025-10-12 19:12 | PROVIDER PROGRESS NOTE ---
Progress Note Progress Note Progress Note: Eventful day today. She was admitted for gastric outlet obstruction visible on CT after Progressives symptoms that crescendoed. Surgery was consulted and a decision needed to be made about whether she would undergo staging workup and biopsy here versus transfer to higher level of care. Dr. Kuhn was able to speak with a surgeon at [facility] and decision was made for the patient to remain here. NG tube was placed for decompression and plan is for EGD tomorrow Patient received a phone call from [facility] in [place]. They informed her that her quant of Farren gold was positive and that she needed a chest x-ray. I called the clinic to verify the result and they told me that indeed the result was positive and requested that the patient have a chest x- ray. I was able to fax them the report of a clear chest x-ray. I requested that they faxed me a copy of the positive result. I have not received that at this point. Patient was discussed with Dr. Kuhn of general surgery. It is possible that this patient has abdominal TB infection and not a malignancy. Appropriate workup will be undertaken at time of EGD tomorrow. Additionally given the degree of disease in her abdomen, she underwent CT of the chest today., Read is pending at this time. Patient will remain n.p.o. with NG decompression overnight. NG is placed to low intermittent suction. She is on D5 NS at 125 cc an hour. She is currently NPO. Labs overall are unremarkable aside from white blood cell count of 12 which could be related to stress and vomiting. I will recheck CBC and BMP in the morning. I have spent 50 minutes in the care of this patient today. This includes time [id number], review and ordering of diagnostic imaging and laboratory studies and consultation with other providers. Monitoring the patient's signs symptoms, evaluation of medication effectiveness and patient's response to treatment. Patient requesting POLST and advance care planning discussion. There has been family and friends in the room all day. I will attempt to complete this this evening.
[2025-10-12 20:00] LABS: ESTIMATED AVERAGE GLUCOSE 103 mg/dL (70-100); HEMOGLOBIN A1c% 5.2 % (4.27-6.07)
--- NOTE | 2025-10-12 20:56 | ADVANCE CARE PLANNING NOTE ---
Advance Care Planning Planning Encounter Date: 10/12/25 Time: 20:41 Purpose: Patient requests POLST Parties in Attendance: Caitlin Pat PA-C, patient Laurel Caballero Decisional Capacity of the Patient: alert and oriented with insight Diagnosis for Encounter (1) Obstructed, gastric outlet: Encounter Subjective/Patient's Story: She is a single mother with a son who is disabled secondary to mental illness. She works building [employer] in [place]. She requests ACP discussion as she is in a vulnerable place right now. The father of her son has come from [place] to take over primary parenting responsibilities. Objective/Medical Story: She has been having nausea and abdominal pain for years. She has pursued treatment, but has been lost to followup. was seen in surgery clinic about a year ago and recommendation was for EGD and lap cholecystectomy in tandem. This did not happen. She then presented to the ED overnight with a gastric outlet obstruction. it would seem that there is a malignancy, but then, this AM, a family practice in [place] ([facility]) called with results that were positive of a Quantiferon Gold, indicating that this GOO could be secondary to TB. it would be rare, but the possibility is distinct. The plan is that she will get EGD in the AM for tissue sample, and proceed from there, additionally, surgeon will try to place post pyloric feeding tube for nutrition. Laurel does not want to be kept alive in a state of poor health, and if she has metastatic cancer, she would like to re visit this discussion. But, right now, everything with her health seems very unclear. She is vulnerable as a single mother, responsible for her disabled son. She would like her daughter, Bing Alberto to be her surrogate medical decision maker, and this was documented on a POLST as such. For the time being, she would like to be FULL CODE, OK to intubate. However, if she is determined to have metastatic cancer, she would prefer to re visit this discussion. Goals of Care: FULL CODE Plan: diagnosis and treatment of this gastric outlet obstruction and determination of prognosis and reasonable treatment plan. Code Status: Attempt Resuscitation Time spent on advance care plannin min
[2025-10-13 10:29] LABS: HCT - HEMATOCRIT 37.9 % (37.0-47.0); HGB - HEMOGLOBIN 11.7 g/dL (12.0-16.0); MEAN PLATELET VOLUME 8.1 fL (7.9-10.8); NRBC ABSOLUTE COUNT (AUTO) 0.00 x10^3/uL; NUCLEATED RED BLOOD CELLS AUTO 0.0 /100WBC; PLT - PLATELET COUNT 268 10^3/uL (130-450); RED CELL DISTRIBUTION WIDTH 13.2 % (12.0-15.0)
[2025-10-13 10:45] LABS: BUN - BLOOD UREA NITROGEN 5.0 mg/dL (6-20); CARBON DIOXIDE - CO2 23.0 mmol/L (21-32); CREATININE 0.8 mg/dL (0.6-1.3); GFR - MDRD 74.0 (>89)
--- NOTE | 2025-10-13 12:27 | CT Report ---
PROCEDURE: CT Chest W INDICATIONS: metastatic workup CONTRAST: OMNI 300 100ml TECHNIQUE: After the administration of intravenous contrast, a CT scan of the chest was performed. Images were recorded and evaluated at appropriate window settings. Reformats: axial MIP of the chest, coronal and sagittal. For radiation dose reduction, the following was used: automated exposure control, adjustment of mA and/or kV according to patient size. COMPARISON: 10/12/2025. FINDINGS: Image quality: Diagnostic. Chest wall and lower neck: No thyroid nodule which requires sonographic follow up. No breast mass. No axillary or supraclavicular adenopathy by size. Lungs and pleura: No consolidation. No pleural effusions. No pneumothorax. Biapical pleural-parenchymal scarring worse on the right than on the left. No suspicious pulmonary nodules which require follow up. Mediastinum: Heart size is normal. No pericardial effusion. No large vessel abnormality. No mediastinal adenopathy by size criteria. Esophagus: No mass or thickening. Nasogastric tube extends into the stomach. Bones: No aggressive osseous abnormality. Mild convex right curvature of the thoracic spine. No listhesis. Upper Abdomen: Mildly distended stomach containing a nasogastric tube. Redemonstration of marked gastric antral wall thickening. Multiple perigastric lymph nodes identified. Probable perigastric implants. 1.4 cm perigastric node on image 99. 1.4 cm perigastric node on image 104. Gallstones are present in the contracted gallbladder. IMPRESSION: No evidence of metastatic disease in the chest. Redemonstration of marked gastric antral wall thickening with perigastric lymph nodes and probable implants. Refer to prior CT of the abdomen and pelvis report. Reviewed by: Jagruti Verduzco MD on 10/13/2025 12:24 PM PST Approved by: Jagruti Verduzco MD on 10/13/2025 12:24 PM PST Station ID: [id number]
--- NOTE | 2025-10-13 14:26 | PROVIDER PROGRESS NOTE ---
Subjective Prog Note Date Prog Note Date: 10/13/25 Subjective Subjective: no nausea, no pain. patiently waiting. Current Medications Current Medications Current Medications: Current Medications Generic Name Dose Route Start Last Admin Trade Name Freq PRN Reason Stop Dose Admin Heparin Sodium (Porcine) 5,000 unit 10/12/25 09:00 10/13/25 10:30 Heparin 5,000 Unit/Ml Vial SUBQ Not Given BID SUNNY Acetaminophen 1,000 mg in 100 mls @ 400 mls/hr 10/12/25 06:57 Acetaminophen IV Q6HR PRN Moderate Pain (Level 4-6) Dextrose/Sodium Chloride 1,000 mls @ 125 mls/hr 10/12/25 14:00 10/13/25 06:30 D5ns IV 125 mls/hr .Q8H SUNNY Administration Ketorolac Tromethamine 15 mg 10/12/25 06:57 Ketorolac 15 Mg/Ml Vial IVP 10/17/25 06:56 Q6HR PRN Severe Pain (Level 7-10) Ondansetron HCl 4 mg 10/12/25 06:57 Ondansetron Odt 4 Mg Tablet TL Q6HR PRN Nausea / Vomiting Pantoprazole Sodium 40 mg 10/12/25 10:00 10/13/25 10:33 Pantoprazole 40 Mg Vial IV 40 mg BID SUNNY Administration Phenol/Menthol 5 sprays 10/12/25 14:19 10/12/25 14:36 Phenol Throat [place] 177 Ml MM 5 sprays Q4HR PRN Administration Mouth Sore Pain Sodium Chloride 10 ml 10/12/25 06:57 Sodium Chloride Flush 0.9% 10 Ml Syringe IVP PRN PRN NEEDED PER PROVIDER ORDERS Sodium Chloride 10 ml 10/12/25 09:00 10/13/25 10:39 Sodium Chloride Flush 0.9% 10 Ml Syringe IVP 10 ml 0100,0900,1700 SUNNY Administration Objective Vital Signs/Intake & Output Reviewed Vital Signs: Yes Vital Signs: Vital Signs x48h Temp Pulse Resp BP Pulse Ox 10/13/25 07:58 36.6 C 61 18 140/81 H 99 Intake & Output: Intake & Output 10/10/25 10/11/25 10/12/25 10/13/25 23:59 23:59 23:59 23:59 Intake Total 3222 / 3222 1100 / 1100 Output Total 650 / 650 50 / 50 Balance 2572 / 2572 1050 / 1050 Weight (kg) 60.2 kg Objective General Appearance: positive No acute distress and Alert Eyes Bilateral: positive Normal inspection ENT: positive ENT inspection nml Neck: positive Nml inspection Respiratory: positive No respiratory distress and Breath sounds nml Cardiovascular: positive Regular rate & rhythm Abdomen: positive Other (palpable epigastric/RUQ mass/thickening.) Skin: positive Color nml and No rash Extremities: positive No pedal edema Neurologic/Psychiatric: positive Oriented x3 Lab Results 10/13/25 10:24 10/13/25 10:24 Other Labs: Lab Results x24hrs 10/13/25 10/12/25 Range/Units 10:24 14:25 WBC 8.5 (4.8-10.8) x10^3/uL RBC 4.86 (4.20-5.40) 10^6/uL Hgb 11.7 L (12.0-16.0) g/dL Hct 37.9 (37.0-47.0) % MCV 78.0 L (81.0-99.0) fL MCH 24.1 L (27.0-31.0) pg MCHC 30.9 L (32.0-36.0) g/dL RDW 13.2 (12.0-15.0) % Plt Count 268 (130-450) 10^3/uL MPV 8.1 (7.9-10.8) fL Neut # (Auto) 6.9 H (1.5-6.6) 10^3/uL Lymph # (Auto) 1.0 L (1.5-3.5) 10^3/uL [place] # (Auto) 0.4 (0.0-1.0) 10^3/uL Eos # (Auto) 0.2 (0.0-0.7) 10^3/uL Baso # (Auto) 0.1 (0.0-0.1) 10^3/uL Absolute Nucleated RBC 0.00 x10^3/uL Nucleated RBC % 0.0 /100WBC PT 13.4 H (9.9-12.6) secs INR 1.2 (0.8-1.2) Sodium 138 (135-145) mmol/L Potassium 3.1 L (3.5-4.5) mmol/L Chloride 107 (101-111) mmol/L Carbon Dioxide 23 (21-32) mmol/L Anion Gap 8.0 (6-13) BUN 5 L (6-20) mg/dL Creatinine 0.8 (0.6-1.3) mg/dL Estimated GFR (MDRD) 74 L (>89) Glucose 120 H (74-104) mg/dL Estimat Average Glucose 103 H (70-100) mg/dL Hemoglobin A1c % 5.2 (4.27-6.07) % Calcium 8.5 (8.5-10.3) mg/dL C-Reactive Protein 0.6 (<0.5) mg/dL Prealbumin 11 L (17-34) mg/dL Assessment/Plan Problem List (1) Obstructed, gastric outlet: Impression: 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 She currently has NG in place for decompression. Plan is for EGD this afternoon with biopsies for pathology. That block can also be studied for TB in pathology. She will need sample sent for H pylori, and it is also possible to send tissue for AFB culture (which is then reflexively studied via PCR for TB if it is positive). Surgeon will also attempt to place post pyloric feeding tube. Discussed with terminal gauger. I will either start TF or PPN tonight, if at all possible, given pharmacist availability if we need PPN Discussed with Dr Kuhn. Recommendation is that she get CT A/P with IV and po contrast- this is not urgent. I would like to get her back here on the med surg floor and get her able to tolerate nutrition, then will look at abdominal imaging, once I know that she can drink contrast. (2) Protein calorie malnutrition: Impression: She qualifies for severe protein calorie malnutrition due to energy intake of less than 50% of what is recommended for more than 2 weeks. She has had a weight loss of approximately 6 to 7% in the past several weeks. She has been unable to consume oral food and beverage. She is currently on D5 NS. This afternoon attempt will be made to pass a nasogastric feeding tube past the mass at the pylorus and then patient can receive postpyloric feedings. 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 I have reviewed the report, and she is positive in 2 out of the 3 values tested. Date of test 09/28/25. I do not see utility in repeat. CXR and chest CT negative. (4) Hypokalemia: Impression: 3.1 today. I have repleted. Will check MAg and Phos levels with daily labs on 10/14. (5) Leukocytosis: Impression: Leukocytosis is resolved. This is most likely due to vomiting. 10/12/25 10/13/25 02:58 10:24 WBC 12.0 H 8.5 (6) Cholelithiasis: Impression: longstainding and has had biliary colic in the past. Previously plan had been for cholecystectomy and EGD simultaneously. Right now, need to take care of this acute GOO, and watch for biliary colic at the point that she is able to tolerate oral feedings (which will be quite some time). This patient's diagnosis and treatment plan was discussed this AM with attending physician as a part of multi disciplinary rounding meeting. I have spent 55 minutes in the care of this patient today. This includes time [id number], review and ordering of diagnostic imaging and laboratory studies and consultation with other providers. Monitoring the patient's signs symptoms, evaluation of medication effectiveness and patient's response to treatment.
[2025-10-13] MEDS ORDERED: MIDAZOLAM 2 MG/2 ML VIAL ONE (15:27)
[2025-10-13] MEDS ORDERED: PROPOFOL 500 MG/50 ML 500 MG/50 ML VIAL ONE (15:27)
[2025-10-13] MEDS ORDERED: LIDOCAINE-MPF 2% 5 ML VIAL ONE (15:27)
[2025-10-13] MEDS ORDERED: PROPOFOL 200 MG/20 ML VIAL IVP ONE (15:58)
--- NOTE | 2025-10-13 16:29 | ANESTHESIA POST OP EVALUATION ---
Anesthesia Post Eval Post Anesthesia Eval Vitals: Last Vital Signs Temp 36.2 C L 10/13/25 16:26 Pulse 83 10/13/25 16:26 Resp 14 10/13/25 16:26 BP 105/61 10/13/25 16:26 Pulse Ox 97 10/13/25 16:26 CV Function Including HR & BP: Stable Pain Control: Satisfactory Nausea & Vomiting: Negative Mental Status: Baseline Respiratory Status: Airway Patent Hydration Status: Satisfactory Anesthesia Complications: None
--- NOTE | 2025-10-13 16:30 | ANESTHESIA PROCEDURE NOTE ---
Pre-Anesthesia VS, & Labs Diagnosis Surgical Diagnosis:: pyloric mass Procedure Procedure: EGD with dobhoff placement Vitals Vital Signs: Temp Pulse Resp BP Pulse Ox 36.2 C L 83 14 105/61 97 10/13/25 16:26 10/13/25 16:26 10/13/25 16:26 10/13/25 16:26 10/13/25 16:26 NPO NPO: >8 hours Is Patient ?: No Lab Results Current Lab Results: Laboratory Tests 10/13/25 10:24: WBC 8.5, RBC 4.86, Hgb 11.7 L, Hct 37.9, MCV 78.0 L, MCH 24.1 L, MCHC 30.9 L, RDW 13.2, Plt Count 268, MPV 8.1, Neut # (Auto) 6.9 H, Lymph # (Auto) 1.0 L, [place] # (Auto) 0.4, Eos # (Auto) 0.2, Baso # (Auto) 0.1, Absolute Nucleated RBC 0.00, Nucleated RBC % 0.0, Sodium 138, Potassium 3.1 L, Chloride 107, Carbon Dioxide 23, Anion Gap 8.0, BUN 5 L, Creatinine 0.8, Estimated GFR (MDRD) 74 L, Glucose 120 H, Calcium 8.5 10/12/25 14:25: PT 13.4 H, INR 1.2, Estimat Average Glucose 103 H, Hemoglobin A1c % 5.2, C-Reactive Protein 0.6, Prealbumin 11 L 10/12/25 02:58: WBC 12.0 H, RBC 5.90 H, Hgb 14.4, Hct 44.5, MCV 75.4 L, MCH 24.4 L, MCHC 32.4, RDW 12.9, Plt Count 328, MPV 8.1, Neut # (Auto) 9.4 H, Lymph # (Auto) 2.0, [place] # (Auto) 0.5, Eos # (Auto) 0.1, Baso # (Auto) 0.1, Absolute Nucleated RBC 0.00, Nucleated RBC % 0.0, Sodium 138, Potassium 3.6, Chloride 92 L, Carbon Dioxide 27, Anion Gap 19.0 H, BUN 17, Creatinine 0.9, Estimated GFR (MDRD) 65 L, Glucose 82, Calcium 9.8, Total Bilirubin 0.8, AST 17, ALT 7 L, Alkaline Phosphatase 114, Total Protein 8.5, Albumin 4.9, Globulin 3.6, Albumin/Globulin Ratio 1.4, Lipase 41 10/13/25 10:24 10/13/25 10:24 Meds/Allgy Home Medications Ambulatory Orders Medication Instructions Recorded Confirmed No Known Home Medications 10/18/2409/30 Allergies Allergies Allergy/AdvReac Type Severity Reaction Status Date / Time oxycodone Allergy Intermediate Rash Verified 10/12/25 02:31 PFS Active Problems All Active Problems Hypokalemia (Acute) Protein calorie malnutrition (Acute) Positive QuantiFERON-TB Gold test (Acute) Leukocytosis (Acute) Nausea & vomiting (Acute) Obstructed, gastric outlet (Acute) Abdominal pain (Acute) Cholelithiasis (Acute) Porcelain gallbladder (Acute) Steatosis, liver (Acute) Fatigue (Acute) Obesity (Acute) Medical History Medical History Esophageal thickening Distal esophagus Ganglion cyst left wrist Cholecystitis with cholelithiasis Surgical History Surgical History History of bilateral tubal ligation laparoscopic Family History Family History Mother Depressed Father Heart attack Son Schizophrenia Brother Schizophrenia Maternal grandmother Migraine Social History Social History Smoking Status: Former smoker If you are a former smoker, when did you quit? (Date/Year): 2007 Second hand tobacco smoke exposure: No Do you dip or chew tobacco?: No Do you vape?: No Living arrangement: At home Marital Status: Support Person: Yes Living Situation Details: [employer]oro[employer]rian[employer] is her support. Lives with son who has a disability Physical Activity: None Level: Independent Do you feel safe in your home environment?: Yes History of physical, verbal, emotional, or financial abuse?: No ETOH Use: None Substance Use: denies use Occupation - Current: Technical Service - [employer] Retired: No Known occupational exposures/hazards (Current/Previous): repetitive motions, heat, chemical fume exposure, prolonged sitting Service: No Are you following a diet prescribed by a doctor: No Are you following a special diet: No Special Diet Details: No salt, no sugar, no oil due to abdominal pain. POLST Patient has POLST: No POLST CPR Status: Attempt Resuscitation (CPR) Level of Medical Intervention: Full Treatment Anesthesia Exam (Expanded) Exam General: Alert, Oriented x3 and Cooperative Dental: WNL Mouth Openin Fingerbreadth Neck Mobility: Normal Mallampati classification: II Thyromental Distance: 4-6 cm Respiratory: Lungs clear Cardiovascular: Regular rate Exam Exam Vital Signs: Vital Signs x48h Temp Pulse Resp BP Pulse Ox 10/13/25 16:26 36.2 C L 83 14 105/61 97 Plan Problem List (1) Obstructed, gastric outlet: Plan: 55yoF admitted 10/12/2025 with gastric outlet obstruction, preceeded by 1.5 weeks of [id number] PO intake with vomiting. She is HD stable with a mild leukocytosis, and electrolyte derangements/urine ketones consistent with starvation ketoacidosis and hypovolemia. CT imaging (IV contrast only) shows dramatic circumferential thickening of the prepyloric stomach through the proximal-mid duodenum, as well as enlarged perigastric lymph nodes. Stomach is markedly distended and full. Of note, the patient had CT finding of mild- nonspecific thickening of foregut wall ([id number]) one year ago when evaluated for abdominal pain. DDX: Clinical and radiographic picture concerning for gastric malignancy vs severe gastritis. No lab or radiographic evidence of biliary or pancreatic dilation, and pancreatic parenchyma looks normal on imaging thus far, but pancreatic head cancer can present with similar circumferential thickening of the gastric outlet/duodenum, and thus is on the differential. Discovered after admission and after my interview with patient: she had a recent immigration physical with a + quantiferon gold but normal CXR suggesting latent TB. Rare dx on differential could include abdominal/extrapulmonary TB. Discussed case with Dr. Bo Woods (SurgOnc @ [facility]), who agrees with patient staying at [facility] for the following initial workup/plan, (and agrees to discuss further once more information is know regarding her diagnosis): - Patient admitted to hospitalist service, receiving rehydration, BID protonix started, Nutrition following - Recommend gastric decompression with NGT to LIWS (already placed and in good position on CXR) - after 24hrs decompression, plan for EGD in OR tomorrow for visual characterization and biopsy (histology and h pylori) of the gastric outlet obstruction, as well as attempted placement of Dobhoff tube for temporary tube feeding access - Further plans pending endoscopic findings but include if findings further suggestive of malignancy: --- staging imaging - CT chest/abd/pel with IV and ORAL contrast --- PET-CT --- tumor markers - Further plans regarding feeding access (+/- surgical feeding tube) pending more clear diagnosis and overall treatment plan Aaliyah Kuhn DO, FACS General Surgeon, Patricia (2) Protein calorie malnutrition: (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 Plan Anesthesia Type: General and Total IV Consent for Procedure(s) Verified and Reviewed: Yes Code Status: Attempt Resuscitation ASA Classification ASA classification: 2-Mild systemic disease Is this case an emergency?: No
[2025-10-13] MEDS: POTASSIUM CHLOR 10 MEQ/100 ML 10 MEQ/100 ML BAG IV SCH (16:46)
[2025-10-14 06:14] LABS: HCT - HEMATOCRIT 36.5 % (37.0-47.0); HGB - HEMOGLOBIN 11.7 g/dL (12.0-16.0); MEAN PLATELET VOLUME 8.7 fL (7.9-10.8); NRBC ABSOLUTE COUNT (AUTO) 0.00 x10^3/uL; NUCLEATED RED BLOOD CELLS AUTO 0.0 /100WBC; PLT - PLATELET COUNT 289 10^3/uL (130-450); RED CELL DISTRIBUTION WIDTH 13.1 % (12.0-15.0)
[2025-10-14 06:35] LABS: BUN - BLOOD UREA NITROGEN 2.0 mg/dL (6-20); CARBON DIOXIDE - CO2 24.0 mmol/L (21-32); CREATININE 0.8 mg/dL (0.6-1.3); GFR - MDRD 74.0 (>89); PHOSPHORUS 1.7 mg/dL (2.5-5.0)
[2025-10-14] MEDS ORDERED: SODIUM CHLORIDE 0.9% 250 ML IV ONE (07:29)
[2025-10-14] MEDS: ONDANSETRON ODT 4 MG TABLET TL PRN (07:57)
[2025-10-14] MEDS: POTASSIUM PHOSPHATE 15 MMOL in SODIUM CHLORIDE 0.9% 250 ML IV ONE (08:36)
--- NOTE | 2025-10-14 10:09 | PROVIDER PROGRESS NOTE ---
Subjective Prog Note Date Prog Note Date: 10/14/25 Subjective Subjective: complains of a metallic taste in her mouth. Some what better as day progresses and she has been able to tolerate a bowl of soup at both lunch and dinner. Spirits are good. She was able to take a long nap this afternoon. Current Medications Current Medications Current Medications: Current Medications Generic Name Dose Route Start Last Admin Trade Name Freq PRN Reason Stop Dose Admin Heparin Sodium (Porcine) 5,000 unit 10/12/25 09:00 10/14/25 08:07 Heparin 5,000 Unit/Ml Vial SUBQ 5,000 unit BID SUNNY Administration Acetaminophen 1,000 mg in 100 mls @ 400 mls/hr 10/12/25 06:57 Acetaminophen IV Q6HR PRN Moderate Pain (Level 4-6) Dextrose/Sodium Chloride 1,000 mls @ 125 mls/hr 10/12/25 14:00 10/14/25 09:30 D5ns IV 125 mls/hr .Q8H SUNNY Administration Potassium Phosphate 15 mmol/ 255 mls @ 42.5 mls/hr 10/14/25 07:05 10/14/25 08:36 Sodium Chloride IV 10/14/25 13:04 42.5 mls/hr ONCE ONE Administration Ketorolac Tromethamine 15 mg 10/12/25 06:57 Ketorolac 15 Mg/Ml Vial IVP 10/17/25 06:56 Q6HR PRN Severe Pain (Level 7-10) Ondansetron HCl 4 mg 10/12/25 06:57 10/14/25 07:57 Ondansetron Odt 4 Mg Tablet TL 4 mg Q6HR PRN Administration Nausea / Vomiting Pantoprazole Sodium 40 mg 10/12/25 10:00 10/14/25 08:07 Pantoprazole 40 Mg Vial IV 40 mg BID SUNNY Administration Phenol/Menthol 5 sprays 10/12/25 14:19 10/12/25 14:36 Phenol Throat [place] 177 Ml MM 5 sprays Q4HR PRN Administration Mouth Sore Pain Sodium Chloride 10 ml 10/12/25 06:57 Sodium Chloride Flush 0.9% 10 Ml Syringe IVP PRN PRN NEEDED PER PROVIDER ORDERS Sodium Chloride 10 ml 10/12/25 09:00 10/14/25 08:08 Sodium Chloride Flush 0.9% 10 Ml Syringe IVP 10 ml 0100,0900,1700 SUNNY Administration Objective Vital Signs/Intake & Output Reviewed Vital Signs: Yes Vital Signs: Vital Signs x48h Temp Pulse Resp BP Pulse Ox 10/14/25 07:54 37 C 72 16 104/56 L 97 10/14/25 05:11 36.6 C 80 20 106/62 98 Intake & Output: Intake & Output 10/11/25 10/12/25 10/13/25 10/14/25 23:59 23:59 23:59 23:59 Intake Total 3222 / 3222 2542 / 2542 2292 / 2292 Output Total 650 / 650 50 / 50 Balance 2572 / 2572 2492 / 2492 2292 / 2292 Weight (kg) 60.2 kg 61 kg Objective General Appearance: positive No acute distress and Alert Eyes Bilateral: positive Normal inspection ENT: positive ENT inspection nml Neck: positive Nml inspection Respiratory: positive No respiratory distress and Breath sounds nml Cardiovascular: positive Regular rate & rhythm Abdomen: positive Other (palpable epigastric/RUQ mass/thickening.) Skin: positive Color nml and No rash Extremities: positive No pedal edema Neurologic/Psychiatric: positive Oriented x3 Lab Results 10/14/25 05:13 10/14/25 05:13 Other Labs: Lab Results x24hrs 10/14/25 10/13/25 Range/Units 05:13 10:24 WBC 17.4 H 8.5 (4.8-10.8) x10^3/uL RBC 4.76 4.86 (4.20-5.40) 10^6/uL Hgb 11.7 L 11.7 L (12.0-16.0) g/dL Hct 36.5 L 37.9 (37.0-47.0) % MCV 76.7 L 78.0 L (81.0-99.0) fL MCH 24.6 L 24.1 L (27.0-31.0) pg MCHC 32.1 30.9 L (32.0-36.0) g/dL RDW 13.1 13.2 (12.0-15.0) % Plt Count 289 268 (130-450) 10^3/uL MPV 8.7 8.1 (7.9-10.8) fL Neut # (Auto) 15.0 H 6.9 H (1.5-6.6) 10^3/uL Lymph # (Auto) 1.6 1.0 L (1.5-3.5) 10^3/uL [place] # (Auto) 0.6 0.4 (0.0-1.0) 10^3/uL Eos # (Auto) 0.0 0.2 (0.0-0.7) 10^3/uL Baso # (Auto) 0.1 0.1 (0.0-0.1) 10^3/uL Absolute Nucleated RBC 0.00 0.00 x10^3/uL Nucleated RBC % 0.0 0.0 /100WBC Sodium 139 138 (135-145) mmol/L Potassium 3.0 L 3.1 L (3.5-4.5) mmol/L Chloride 108 107 (101-111) mmol/L Carbon Dioxide 24 23 (21-32) mmol/L Anion Gap 7.0 8.0 (6-13) BUN 2 L 5 L (6-20) mg/dL Creatinine 0.8 0.8 (0.6-1.3) mg/dL Estimated GFR (MDRD) 74 L 74 L (>89) Glucose 110 H 120 H (74-104) mg/dL Calcium 8.4 L 8.5 (8.5-10.3) mg/dL Phosphorus 1.7 L (2.5-5.0) mg/dL Magnesium 1.7 (1.7-2.3) mg/dL Assessment/Plan Problem List (1) Obstructed, gastric outlet: Impression: 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 post pyloric dobhoff placement was not effective. She has tolerated a full liquid diet at lunchtime. Then, she was able to have a bowel movement. tolerated dinner as well. I have started her on some reglan to promote motility. Discussed with Dr Kuhn. Recommendation is that she get CT A/P with IV and po contrast- this is not urgent. Perhaps will pursue this once she is tolerating a diet very consistently. I would like her to be able to get oral contrast and not vomit. She remains inpatient due to inability to support her needs for nutrition at home. discharge at this time would cause her protein deandre malnutrition to worsen with this gastric outlet obstruction, I am not sure she can meet her caloric needs without artificial nutrition, which currently needs to be PPN (2) Protein calorie malnutrition: Impression: She qualifies for severe protein calorie malnutrition due to energy intake of less than 50% of what is recommended for more than 2 weeks. She has had a weight loss of approximately 6 to 7% in the past several weeks. She has been unable to consume oral food and beverage. She is currently on D5 NS. Attempt was made to pass a nasogastric feeding tube past the mass: not successful i am starting PPN in additon to oral feeding. She may need a picc and advancement to TPN. 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 Date of test 09/28/25. I do not see utility in repeat. CXR and chest CT negative. (4) Hypokalemia: Impression: 2 Laboratory Tests 10/12/25 10/13/25 02:58 10:24 Potassium 3.6 3.1 L She got K phos today for phos 1.7. This is 22mEq potassium. I will give her an additional 20mEq via KCl riders. I have ordered repeat BMP for the AM. (5) Leukocytosis: Impression: Leukocytosis is resolved, then recurred. likely stress response from EGD/anesthesia event yesterday. 10/12/25 10/13/25 02:58 10:24 WBC 12.0 H 8.5 10/14/25 05:13 WBC 17.4 H (6) Cholelithiasis: Impression: longstainding and has had biliary colic in the past. Previously plan had been for cholecystectomy and EGD simultaneously. Right now, need to take care of this acute GOO, and watch for biliary colic at the point that she is able to tolerate oral feedings (which will be quite some time). This patient's diagnosis and treatment plan was discussed this AM with attending physician as a part of multi disciplinary rounding meeting. I have spent 45 minutes in the care of this patient today. This includes time [id number], review and ordering of diagnostic imaging and laboratory studies and consultation with other providers. Monitoring the patient's signs symptoms, evaluation of medication effectiveness and patient's response to treatment.
--- NOTE | 2025-10-14 13:11 | PROVIDER PROGRESS NOTE ---
Subjective General Admit Date: 10/12/25 Procedure Date: 10/13/25 Post Op Days: 1 Procedure Performed: EGD Other Other Information/Narrative: EGD yesterday demonstrated a circumferential, soft, friable mass at the gastric outlet with stigmata of recent bleeding. It was not completely obstructing as the scope was able to traverse into the duodenum, however a Dobbhoff was not able to be secured past the mass as it kept withdrawing along with the scope. This morning the patient had nausea which has subsided with Zofran, and then she tolerated a full bowl of tomato soup for lunch followed by a bowel movement. She is not having much baseline pain. Review of Systems Status of ROS: 10 or more systems reviewed and unremarkable except as noted in history and below Exam Exam Vital Signs: Vital Signs x48h Temp Pulse Resp BP Pulse Ox 10/14/25 07:54 37 C 72 16 104/56 L 97 10/14/25 05:11 36.6 C 80 20 106/62 98 Constitutional normal general appearance and no apparent distress HENID normocephalic Neck/C-Spine visual inspection normal Respiratory normal respiratory effort and clear to auscultation bilaterally Cardiovascular normal heart rate noted and regular rhythm noted Gastrointestinal abdomen soft to palpation, nondistended and mass noted In the RUQ, there is a firm abdominal mass (not a soft tissue abdominal wall mass) palpable in location that corresponds with pylorus/area of concern on CT. It is mildly tender, with no overlying skin changes. Impression of size by palpation (indistinct by palpation through abdominal wall) is about that of an orange. No LUQ ttp. no rebound/peritoneal signs/negative murpheys. Extremities normal to inspection Neurology no movement abnormality noted and GCS 15 Psychiatry mental status grossly normal and oriented x3 Skin skin color normal Impression/Plan Problem List (1) Obstructed, gastric outlet: Plan: 55yoF admitted 10/12/2025 with gastric outlet obstruction, preceded by 1.5 weeks of [id number] PO intake with vomiting. CT imaging (IV contrast only) shows dramatic circumferential thickening of the prepyloric stomach through the proximal-mid duodenum, as well as enlarged perigastric lymph nodes. Stomach is markedly distended and full. Of note, the patient had CT finding of mild- nonspecific thickening of foregut wall ([id number]) one year ago when evaluated for abdominal pain. DDX: Clinical and radiographic picture concerning for gastric malignancy vs severe gastritis. *CT chest on 10/13 with no e.o metastatic disease No lab or radiographic evidence of biliary or pancreatic dilation, and pancreatic parenchyma looks normal on imaging thus far, but pancreatic head cancer can present with similar circumferential thickening of the gastric outlet/duodenum, and thus is on the differential. Discovered after admission and after my interview with patient: she had a recent immigration physical with a + quantiferon gold but normal CXR suggesting latent TB. Rare dx on differential could include abdominal/extrapulmonary TB. 10/12/2025: Admission, NGT decompression, "tele-curbside" with Dr[facility] Bo [facility] ([facility] who agrees with patient staying at [facility] for the following initial workup/plan, and agrees to discuss further once more information is know regarding her diagnosis. 10/13/2025: EGD - Soft, friable, circumferential mass with adherent clot at the gastric outlet; unsuccessful dobhoff placement. Prealbumin 11 (with normal CRP) 10/14/2025: intermittent nausea vs tolerating fulls - await Tissue culture, pathology, h pylori results - start PPN/TPN - Clears or fulls as tolerated, but doubt this will support nutritional needs - can trial scheduled reglan --- nonurgent CT abd/pel with IV and ORAL contrast [PET/Tumor markers if path shows malignancy] - Further plans regarding feeding access (+/- surgical feeding tube) pending more clear diagnosis and overall treatment plan Patient admitted to hospitalist service Surgery will follow along, perhaps intermittently while awaiting tissue pathology/culture results Aaliyah Kuhn DO, FACS General Surgeon, [facility] (2) Protein calorie malnutrition: (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
[2025-10-14] MEDS: METOCLOPRAMIDE 10 MG/2 ML VIAL IVP SCH (13:24)
[2025-10-14] MEDS: POTASSIUM CHLOR 10 MEQ/100 ML 10 MEQ/100 ML BAG IV SCH (16:22)
[2025-10-14] MEDS: PPN (CLINIMIX E 4.25/5) 2,000 ML with MULTIVITAMIN 10 ML, TRACE ELEMENTS 1 ML IV SCH (18:52)
[2025-10-14] MEDS: FAT EMULSION 20% 250 ML IV SCH (18:52)
[2025-10-15 05:51] LABS: HCT - HEMATOCRIT 34.7 % (37.0-47.0); HGB - HEMOGLOBIN 10.6 g/dL (12.0-16.0); MEAN PLATELET VOLUME 9.3 fL (7.9-10.8); NRBC ABSOLUTE COUNT (AUTO) 0.00 x10^3/uL; NUCLEATED RED BLOOD CELLS AUTO 0.0 /100WBC; PLT - PLATELET COUNT 256 10^3/uL (130-450); RED CELL DISTRIBUTION WIDTH 13.3 % (12.0-15.0)
[2025-10-15] MEDS: SODIUM CHLORIDE FLUSH 0.9% 10 ML SYRINGE IVP PRN (06:06)
[2025-10-15 06:10] LABS: ALT ALANINE AMINOTRANSFERASE 5.0 IU/L (10-60); AST ASPARTATE AMINOTRANSFERASE 9.0 IU/L (10-42); BUN - BLOOD UREA NITROGEN 6.0 mg/dL (6-20); CARBON DIOXIDE - CO2 25.0 mmol/L (21-32); CREATININE 0.7 mg/dL (0.6-1.3); GFR - MDRD 86.0 (>89); PHOSPHORUS 3.3 mg/dL (2.5-5.0)
[2025-10-15] MEDS: POTASSIUM CHLORIDE 20 MEQ/15 ML UDC PO ONE (08:35)
[2025-10-15] MEDS ORDERED: DIATRIZOATE MEGLU/DIATRIZO SOD 30 ML BOTTLE ONE (11:27)
[2025-10-15] MEDS: iohexoL-300 150 ML BOTTLE IVP ONE (13:02)
[2025-10-15] MEDS: DIATRIZOATE MEGLU/DIATRIZO SOD 30 ML BOTTLE PO ONE (13:02)
--- NOTE | 2025-10-15 13:11 | PROVIDER PROGRESS NOTE ---
Subjective Prog Note Date Prog Note Date: 10/15/25 Subjective Subjective: She is tolerating a full liquid diet for 3 meals now. Current Medications Current Medications Current Medications: Current Medications Generic Name Dose Route Start Last Admin Trade Name Freq PRN Reason Stop Dose Admin Diatrizoate Meglum/Diatrizoate Sod 30 ml 10/15/25 13:00 10/15/25 13:02 Diatrizoate Meglu/Diatrizo Sod 30 Ml Bottle PO 10/15/25 13:01 30 ml ONCE ONE Administration Heparin Sodium (Porcine) 5,000 unit 10/12/25 09:00 10/15/25 08:07 Heparin 5,000 Unit/Ml Vial SUBQ 5,000 unit BID SUNNY Administration Acetaminophen 1,000 mg in 100 mls @ 400 mls/hr 10/12/25 06:57 Acetaminophen IV Q6HR PRN Moderate Pain (Level 4-6) Multivitamins 10 ml/ Zinc/ 2,011 mls @ 83 mls/hr 10/14/25 19:00 10/14/25 18:52 Copper/Manganese/Selenium 1 ml IV 10/15/25 18:59 83 mls/hr / Amino Acids/Electrolytes/ 1900 SUNNY Administration Dextrose Protocol Fat Emulsion Intravenous 250 mls @ 21 mls/hr 10/14/25 19:00 10/15/25 06:47 Intralipid 20% IV 10/15/25 18:59 Infused 1900 SUNNY Infusion Iohexol 100 ml 10/15/25 13:00 10/15/25 13:02 Iohexol-300 150 Ml Bottle IVP 10/15/25 13:01 100 ml ONCE ONE Administration Ketorolac Tromethamine 15 mg 10/12/25 06:57 Ketorolac 15 Mg/Ml Vial IVP 10/17/25 06:56 Q6HR PRN Severe Pain (Level 7-10) Metoclopramide HCl 5 mg 10/14/25 13:00 10/15/25 06:06 Metoclopramide 10 Mg/2 Ml Vial IVP 5 mg Q6HR SUNNY Administration Ondansetron HCl 4 mg 10/12/25 06:57 10/14/25 07:57 Ondansetron Odt 4 Mg Tablet TL 4 mg Q6HR PRN Administration Nausea / Vomiting Pantoprazole Sodium 40 mg 10/12/25 10:00 10/15/25 08:06 Pantoprazole 40 Mg Vial IV 40 mg BID SUNNY Administration Phenol/Menthol 5 sprays 10/12/25 14:19 10/12/25 14:36 Phenol Throat [place] 177 Ml MM 5 sprays Q4HR PRN Administration Mouth Sore Pain Sodium Chloride 10 ml 10/12/25 06:57 10/15/25 06:06 Sodium Chloride Flush 0.9% 10 Ml Syringe IVP 10 ml PRN PRN Administration NEEDED PER PROVIDER ORDERS Sodium Chloride 10 ml 10/12/25 09:00 10/15/25 08:06 Sodium Chloride Flush 0.9% 10 Ml Syringe IVP 10 ml 0100,0900,1700 SUNNY Administration Objective Vital Signs/Intake & Output Reviewed Vital Signs: Yes Vital Signs: Vital Signs x48h Temp Pulse Resp BP BP Pulse Ox 10/15/25 12:21 36.5 C 53 L 18 132/80 H 100 10/15/25 07:57 36.5 C 59 L 18 125/66 97 Intake & Output: Intake & Output 10/12/25 10/13/25 10/14/25 10/15/25 23:59 23:59 23:59 23:59 Intake Total 3222 / 3222 2542 / 2542 3987 / 3987 490 / 490 Output Total 650 / 650 50 / 50 Balance 2572 / 2572 2492 / 2492 3987 / 3987 490 / 490 Weight (kg) 60.2 kg 61 kg 61.5 kg Objective General Appearance: positive No acute distress and Alert Eyes Bilateral: positive Normal inspection ENT: positive ENT inspection nml Neck: positive Nml inspection Respiratory: positive No respiratory distress and Breath sounds nml Cardiovascular: positive Regular rate & rhythm Abdomen: positive Other (palpable epigastric/RUQ mass/thickening.) Skin: positive Color nml and No rash Extremities: positive No pedal edema Neurologic/Psychiatric: positive Oriented x3 Lab Results 10/15/25 04:57 10/15/25 04:57 Other Labs: Lab Results x24hrs 10/15/25 Range/Units 04:57 WBC 8.7 (4.8-10.8) x10^3/uL RBC 4.46 (4.20-5.40) 10^6/uL Hgb 10.6 L (12.0-16.0) g/dL Hct 34.7 L (37.0-47.0) % MCV 77.8 L (81.0-99.0) fL MCH 23.8 L (27.0-31.0) pg MCHC 30.5 L (32.0-36.0) g/dL RDW 13.3 (12.0-15.0) % Plt Count 256 (130-450) 10^3/uL MPV 9.3 (7.9-10.8) fL Neut # (Auto) 6.2 (1.5-6.6) 10^3/uL Lymph # (Auto) 1.6 (1.5-3.5) 10^3/uL [place] # (Auto) 0.4 (0.0-1.0) 10^3/uL Eos # (Auto) 0.4 (0.0-0.7) 10^3/uL Baso # (Auto) 0.1 (0.0-0.1) 10^3/uL Absolute Nucleated RBC 0.00 x10^3/uL Nucleated RBC % 0.0 /100WBC Sodium 141 (135-145) mmol/L Potassium 3.2 L (3.5-4.5) mmol/L Chloride 110 (101-111) mmol/L Carbon Dioxide 25 (21-32) mmol/L Anion Gap 6.0 (6-13) BUN 6 (6-20) mg/dL Creatinine 0.7 (0.6-1.3) mg/dL Estimated GFR (MDRD) 86 L (>89) Glucose 112 H (74-104) mg/dL Calcium 8.5 (8.5-10.3) mg/dL Phosphorus 3.3 (2.5-5.0) mg/dL Total Bilirubin 0.3 (0.2-1.0) mg/dL AST 9 L (10-42) IU/L ALT 5 L (10-60) IU/L Alkaline Phosphatase 66 (42-121) IU/L Total Protein 5.9 L (6.4-8.9) g/dL Albumin 3.3 (3.2-5.5) g/dL Globulin 2.6 (2.1-4.2) g/dL Albumin/Globulin Ratio 1.3 (1.0-2.2) Assessment/Plan Problem List (1) Obstructed, gastric outlet: Impression: 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 post pyloric dobhoff placement was not effective. She is tolerating a full liquid diet, she has been counseled extensively on her diet and what she can have. She understands that she does have a mechanical obstruction and any particulate matter in her diet will likely cause full obstruction. I have started her on some reglan to promote motility. She was able to complete CT with po contrast today. She remains inpatient due to inability to support her needs for nutrition at home. discharge at this time would cause her protein deandre malnutrition to worsen with this gastric outlet obstruction, She is doing well with oral intake. My plan right now is to continue with oral intake and let her get PPN through this evening. IF she continues to be able to eat and drink, I think I can send her home with careful attention to outpatient followup and return precautions if she is not tolerating oral intake. Discussed with Dr Kuhn of general surgery today, and she is prepared to follow up on path, etc in the outpatient enviroment. (2) Protein calorie malnutrition: Impression: She qualifies for severe protein calorie malnutrition due to energy intake of less than 50% of what is recommended for more than 2 weeks. She has had a weight loss of approximately 6 to 7% in the past several weeks. She has been unable to consume oral food and beverage. She is currently on PPN as well as full liquid diet. I think she can maintain caloric needs without home parenteral nutrition. Attempt was made to pass a nasogastric feeding tube past the mass: not successful (3) Positive QuantiFERON-TB Gold test: Impression: I have reviewed the report, and she is positive in 2 out of the 3 values tested. Date of test 09/28/25. I do not see utility in repeat. CXR and chest CT negative. need to determine latent TB vs TB infection to know how to treat, therefore await path. (4) Hypokalemia: Impression: 2 Laboratory Tests 10/12/25 10/13/25 10/14/25 02:58 10:24 05:13 Potassium 3.6 3.1 L 3.0 L 10/15/25 04:57 Potassium 3.2 L Phos normal today. Mag was normal yesterday. I have ordered repeat BMP for the AM. She received oral Kcl (liquid) 40mEq today. (5) Leukocytosis: Impression: Leukocytosis is resolved, then recurred. likely stress response from EGD/anesthesia event 2 days ago. Normal again today 10/12/25 10/13/25 02:58 10:24 WBC 12.0 H 8.5 10/14/25 05:13 WBC 17.4 H Laboratory Tests 10/15/25 04:57 WBC 8.7 (6) Cholelithiasis: Impression: longstainding and has had biliary colic in the past. Previously plan had been for cholecystectomy and EGD simultaneously. Right now, need to take care of this acute GOO, and watch for biliary colic. She is tolerating a full liquid diet here. She follows a very vegan diet, so not much fat. I am encouraging her to partake of some plant based fats, to the extent that we are able to provide them here. This patient's diagnosis and treatment plan was discussed this AM with attending physician as a part of multi disciplinary rounding meeting. I have spent 40 minutes in the care of this patient today. This includes time [id number], review and ordering of diagnostic imaging and laboratory studies and consultation with other providers. Monitoring the patient's signs symptoms, evaluation of medication effectiveness and patient's response to treatment.
--- NOTE | 2025-10-15 16:48 | CT Report ---
PROCEDURE: CT Abdomen/Pelvis W INDICATIONS: metastatic workup CONTRAST: By mouth contrast. Omni 300 100mL TECHNIQUE: After the administration of intravenous contrast, a CT scan of the abdomen and pelvis was performed. Images were recorded and evaluated at appropriate window settings. Reformats: coronal and sagittal. For radiation dose reduction, the following was used: automated exposure control, adjustment of mA and/or kV according to patient size. COMPARISON: None. FINDINGS: Image quality: Diagnostic. Lower chest: Unremarkable. Liver: No solid mass. Gallbladder: Large calcific cholelithiasis. Biliary tree: No intrahepatic or extrahepatic dilation, accounting for age. Spleen: No splenomegaly. Pancreas: No pancreatic ductal dilation. Adrenals: No adrenal nodule. Kidneys and ureters: No hydronephrosis. No renal cystic lesion which requires follow up. No solid mass. Stomach, bowel and peritoneum: There is diffuse wall thickening of the antrum of the stomach. Contrast passes through this wall thickening area and enters the small bowel. No evidence of small bowel obstruction. Contrast is seen to the level of the ileum. Normal appendix. Large bowel is decompressed. Small volume free fluid in the pelvis. Surrounding the antrum there are several ill-defined nodules likely representing metastatic disease versus lymph nodes. On the anterior aspect there is questionable invasion into the mesenteric fat Lymph nodes: No central or retroperitoneal adenopathy. Vessels: No infrarenal aortic aneurysm. Patent portal vein. PELVIS Reproductive organs: Unremarkable. Bladder: No abnormal wall thickening. Pelvic lymph nodes: No pelvic adenopathy by size criteria. Bones: No aggressive osseous abnormality. Other: No significant ventral or inguinal hernia. IMPRESSION: 1. Antral gastric wall thickening concerning for neoplasm. 2. Perigastric lymphadenopathy with soft tissue nodularity suggestive of direct invasion of the perigastric fat. 3. Cholelithiasis. Reviewed by: Jairo Phillips MD on 10/15/2025 3:44 PM AKST Approved by: Jairo Phillips MD on 10/15/2025 3:44 PM [facility] Station ID: [id number]
[2025-10-16 06:02] LABS: HCT - HEMATOCRIT 35.1 % (37.0-47.0); HGB - HEMOGLOBIN 10.9 g/dL (12.0-16.0); MEAN PLATELET VOLUME 9.0 fL (7.9-10.8); NRBC ABSOLUTE COUNT (AUTO) 0.00 x10^3/uL; NUCLEATED RED BLOOD CELLS AUTO 0.0 /100WBC; PLT - PLATELET COUNT 274 10^3/uL (130-450); RED CELL DISTRIBUTION WIDTH 13.3 % (12.0-15.0)
[2025-10-16 06:19] LABS: BUN - BLOOD UREA NITROGEN 8.0 mg/dL (6-20); CARBON DIOXIDE - CO2 27.0 mmol/L (21-32); CREATININE 0.8 mg/dL (0.6-1.3); GFR - MDRD 74.0 (>89)
[2025-10-16 11:53] VITALS: O2SAT 97
--- NOTE | 2025-10-16 15:11 | Discharge Summary ---
"Discharge Summary Admit Date: 10/12/25 Discharge Date: 10/16/25 Discharging Provider: Caitlin Pat PA-C Primary Care Provider: LUCERO Vaughn Code Status: Attempt Resuscitation DIAGNOSES Discharge Diagnoses with Status of Each Condition: Gastric outlet obstruction Protein calorie malnutrition Positive Quantiferon gold TB test Hypokalemia, resolved Leukocytosis, resolved Cholelithiasis, chronic HPI History of Present Illness: Mrs. Caballero is a 55yoF with no significant PMH presented with 5 days of progressive nausea and vomiting. She explained that she had been experiencing increase satiety, loss of appetite for several weeks. This past week she started to have nausea which progressed to vomiting whenever she would eat something. She denied pain but did have epigastric burning and fullness. She had not had any fevers, any recent sick contacts. She has not been feeling well for the past month and has had 10lb unintentional weight loss during that time. Workup, CT abdomen and pelvis demonstrated enlarged stomach with material and air fluid levels, a proximal duodenal mass, with suspicious nodules in the lung. This visit was performed using tele-health tools, including phone and live- video. patient provided verbal consent to complete this telemedicine encounter. During the time my interview and evaluation, the patient was located at [facility] in the [facility], I was located in [place]. CONSULTS | PROCEDURES Procedures: EGD, for biopsy and attempted placement of feeding tube. ALLERGIES Allergies Allergy/AdvReac Type Severity Reaction Status Date / Time oxycodone Allergy Intermediate Rash Verified 10/12/25 02:31 MEDICATIONS Ambulatory Orders Medication Instructions Recorded Confirmed metoclopramide HCl 5 mg/5 mL oral 10 mg (10 mL) PO [facility] HS #473 mL 10/16/25 solution pantoprazole 40 mg granules 40 mg PO DAILY #30 ea 09/30 06/23 delayed-release for susp in packet (Protonix) PHYSICAL EXAM AT DISCHARGE Vital Signs: Vital Signs x48h Temp Pulse Resp BP Pulse Ox 10/16/25 16:15 36.5 C 64 20 128/74 97 Physical Exam Other/Comments: General Appearance: positive No acute distress and Alert Eyes Bilateral: positive Normal inspection ENT: positive ENT inspection nml Neck: positive Nml inspection Respiratory: positive No respiratory distress and Breath sounds nml Cardiovascular: positive Regular rate & rhythm Abdomen: positive Other (palpable epigastric/RUQ mass/thickening.) Skin: positive Color nml and No rash Extremities: positive No pedal edema Neurologic/Psychiatric: positive Oriented x3 LABS 10/16/25 05:35 10/16/25 05:35 FOLLOW UP Follow Up: PCP [facility]. She will see General surgery in next 2 weeks for followup. She has a positive TB test, unclear if this is TB in her GI tract or cancer, await biopsy results TIME SPENT Time Spent in Discharge (Minutes): 45 Discharge Plan Discharge Patient Disposition: Home, Self Care Condition: Fair Prescriptions: New metoclopramide HCl 5 mg/5 mL solution 10 mg PO QACHS Qty: 473 2RF pantoprazole [Protonix] [address] for susp in packet 40 mg PO DAILY Qty: 30 2RF Activity Restrictions: Activity as Tolerated Health Concerns: Discharge Instructions: Full Liquid Vegan Diet for Gastric Outlet Obstruction You have been diagnosed with gastric outlet obstruction, which means food and liquids have trouble passing from your stomach into your intestines. To help manage your symptoms and support your nutrition, you will be following a full liquid vegan diet. Here are important instructions to help you recover safely: * Eat small, frequent meals.Try to have 5-6 small meals or snacks each day instead of 2-3 large ones. This helps prevent stomach discomfort and reduces nausea and vomiting. * Choose liquids and blended foods.Liquids leave the stomach more easily than solids. Good choices include vegan smoothies, blended soups, plant-based milks (like soy, oat, or almond), vegan protein shakes, and pureed fruits and vegetables. Make sure everything is smooth and free of chunks. * Limit high-fiber and high-fat foods.Foods with a lot of fiber (like raw vegetables, whole grains, beans, and seeds) or fat (like oils, nuts, and fried foods) can slow down stomach emptying and make symptoms worse. Use well- cooked, peeled, and strained fruits and vegetables, and choose low-fat options. * Avoid foods that may cause symptoms.Acidic, spicy, or rough foods (like citrus juices, tomato juice, onions, peppers, and broccoli) may worsen nausea or bloating. [place] foods like applesauce, potatoes, and rice-based drinks are usually better tolerated.[1] * Sit upright after eating.Stay sitting, standing, or walking for at least 30 minutes after meals. This helps food move out of your stomach more easily.[1] * Chew and blend well.If you eat any foods that are not fully liquid, chew them very well or blend them until smooth. Small food particles are easier for your stomach to handle.[1] * Stay hydrated.Drink plenty of fluids throughout the day, such as water, clear broths, and plant-based milks. Avoid sugary drinks unless recommended for extra calories.[6] * Watch for signs of dehydration or malnutrition.If you notice dry mouth, dizziness, weakness, or weight loss, contact your healthcare provider. * Vegan nutrition tips:Vegan diets may lack certain nutrients like vitamin B12, vitamin D, iron, zinc, and choline. Use fortified plant-based milks and supplements as recommended by your healthcare team. Include protein sources like soy milk, tofu, and blended legumes if tolerated.[3-5] * Monitor symptoms.If you have increased vomiting, severe pain, or cannot keep liquids down, seek medical attention right away. Follow-up:Keep all scheduled appointments with your healthcare team. You may be referred to a dietitian for more personalized nutrition advice. I have started you on Reglan to help your gut move. take it before meals and before bed. If you have any questions or concerns, please contact your healthcare provider. Print Language: Hungarian Patient Instructions: Surg Dc Follow-up Care: Mounika Brantley ARNP [Primary Care Provider, Family Practice] Aaliyah Kuhn, DO [Provider Admit Priv/Credential, Surgery, General] Vitals documented within 30 minutes of discharge?: Yes"
[2025-10-16 16:29] VITALS: BP 128/74; TEMP 97.7
== END 2025-10-16 16:20 | disposition home or self-care (01) | DRG 380 ==
LOC: ED 02:13 → MS2 06:36
PROVIDERS: ADMIT Hospitalist; ATTEND Hospitalist
DX: C16.4 Malignant neoplasm of pylorus; E87.29 Other acidosis; Z87.891 Personal history of nicotine dependence; R91.8 Other nonspecific abnormal finding of lung field; D72.829 Elevated white blood cell count, unspecified; Z63.6 Dependent relative needing care at home; Z68.25 Body mass index [BMI] 25.0-25.9, adult; E43 Unspecified severe protein-calorie malnutrition; R76.12 Nonspecific reaction to cell mediated immunity measurement of gamma interferon antigen response without active tuberculosis; E87.6 Hypokalemia; R43.8 Other disturbances of smell and taste; K31.1 Adult hypertrophic pyloric stenosis; B96.81 Helicobacter pylori [H. pylori] as the cause of diseases classified elsewhere; K80.20 Calculus of gallbladder without cholecystitis without obstruction; R59.0 Localized enlarged lymph nodes; K29.50 Unspecified chronic gastritis without bleeding; E86.1 Hypovolemia